=== PATIENT | female | born 2000 | race Caucasian/White ===

== ENCOUNTER 2021-04-26 14:47 | Outpatient (REF) | payer MEDICARE, MEDICAID, SELFPAY ==
--- NOTE | 2021-04-26 | PFT_ITS ---
FLOWS: FEV1 90% of predicted at 3.34 L. FVC 108% of predicted at 4.67 L. FEV1 to FVC ratio of 0.72. No bronchodilator response. LUNG VOLUMES: Total lung capacity 104% of predicted at 5.91 L. Residual volume 112% of predicted at 1.59 L. Slow vital capacity 102% of predicted at 4.32 L. Expiratory reserve volume 53% of predicted at 0.91 L. Diffusion capacity is normal. IMPRESSION: No obstructive or restrictive ventilatory defect. No bronchodilator response. Decreased expiratory reserve volume suggests extrathoracic restriction, likely secondary to abdominal obesity. Adam Purcell MD AP/MODL / [id number]
--- NOTE | ~2021-04-26 | XR_ITS ---
EXAMINATION: XR WRIST, RIGHT CLINICAL INFORMATION: Pain COMPARISON: None TECHNIQUE: PA, lateral, and oblique views of the right wrist. FINDINGS: The bones and soft tissues are normal. No fracture. Alignment is anatomic with normal joint spaces. No erosions or abnormal soft tissue calcifications. XR/XR wrist RT min 3V IMPRESSION: Normal right wrist.
--- NOTE | ~2021-04-26 | XR_ITS ---
EXAMINATION: BILATERAL KNEE X-RAY CLINICAL INFORMATION: Pain COMPARISON: None TECHNIQUE: 4 views of each knee FINDINGS: No fracture or dislocation is seen. There may be slight lateral tilt of the patella seen on the sunrise view bilaterally. Joint spaces are otherwise normal. There is no joint effusion. XR/XR knee LT 3V IMPRESSION: Question lateral tilt of the patella on the sunrise view bilaterally otherwise unremarkable exam.
--- NOTE | ~2021-04-26 | XR_ITS ---
EXAMINATION: BILATERAL KNEE X-RAY CLINICAL INFORMATION: Pain COMPARISON: None TECHNIQUE: 4 views of each knee FINDINGS: No fracture or dislocation is seen. There may be slight lateral tilt of the patella seen on the sunrise view bilaterally. Joint spaces are otherwise normal. There is no joint effusion. XR/XR knee RT 3V IMPRESSION: Question lateral tilt of the patella on the sunrise view bilaterally otherwise unremarkable exam.
== END 2021-04-26 14:48 | disposition home or self-care (01) ==
LOC: HO.RESP 14:47
PROVIDERS: PCP Family Medicine; Visit Provider Family Medicine
DX: M25.531 Pain in right wrist (principal); M25.561 Pain in right knee; M25.562 Pain in left knee
CPT/HCPCS: 73110; 73562; 94060; 94727; 94729

== ENCOUNTER 2021-07-29 13:29 | Outpatient (REF) | payer MEDICARE, MEDICAID, SELFPAY ==
--- NOTE | ~2021-07-29 | MR_ITS ---
EXAMINATION: MR BRAIN WITHOUT CONTRAST CLINICAL INFORMATION: Chronic tension headaches. COMPARISON: Head CT from 01/28/2018. TECHNIQUE: Multiplanar, multisequence imaging of the brain was performed without contrast. The patient reportedly refused to complete the examination. FINDINGS: No diffusion abnormalities are identified to suggest an acute infarct. The ventricles are normal in size. No mass effect or midline shift is seen. No brain parenchymal signal abnormality is noted. No extra-axial fluid collections are seen. The brainstem and cerebellum are normal. The gradient refocused acquisition demonstrates no pathologic magnetic susceptibility artifact to indicate underlying acute or chronic blood products. The craniovertebral junction, marrow signal, and midline structures are normal. The mastoid air cells and paranasal sinuses are well aerated. MR/MR head/brain wo con IMPRESSION: Normal incomplete MRI of the brain without contrast.
== END 2021-07-29 13:30 | disposition home or self-care (01) ==
LOC: HO.MRI 13:29
PROVIDERS: Visit Provider Family Medicine
DX: G43.909 Migraine, unspecified, not intractable, without status migrainosus (principal); G44.229 Chronic tension-type headache, not intractable
CPT/HCPCS: 70551

== ENCOUNTER 2023-01-01 13:18 | Outpatient (REF) | payer MEDICARE, MEDICAID, SELFPAY ==
[2023-01-01 16:44] LABS: HCG Quantitative < 2 mIU/mL
[2023-01-01 16:56] LABS: TSH reflex Free T4 2.39 uIU/mL (0.32-4.0)
[2023-01-02 18:50] LABS: Prolactin 7.5 ng/mL
[2023-01-04 23:53] LABS: C. trachomatis RNA TMA NOT DETECTED (NOT DETECTED); N. gonorrhoeae RNA TMA NOT DETECTED (NOT DETECTED); Trichomonas (NAAT) NOT DETECTED (NOT DETECTED)
== END 2023-01-01 13:19 | disposition home or self-care (01) ==
LOC: HO.HHCL 13:18
PROVIDERS: Visit Provider Advanced Practice Midwife
DX: Z12.4 Encounter for screening for malignant neoplasm of cervix (principal); Z20.2 Contact with and (suspected) exposure to infections with a predominantly sexual mode of transmission; N93.9 Abnormal uterine and vaginal bleeding, unspecified; N94.89 Other specified conditions associated with female genital organs and menstrual cycle
CPT/HCPCS: 36415; 84146; 84443; 84702; 87491; 87591; 87661; 88142

== ENCOUNTER 2024-05-07 11:24 | Outpatient (REF) | payer MEDICARE, MEDICAID, SELFPAY ==
[2024-05-07 13:34] LABS: Alanine Aminotransferase 32 U/L (0-31); Albumin Level 4.2 g/dL (3.5-5.0); Alkaline Phosphatase 129 U/L (39-117); Anion Gap 9 (12-20); Aspartate Amino Transferase 25 U/L (5-31); Bilirubin Total 0.2 mg/dL (0.0-1.0); Blood Urea Nitrogen 12 mg/dL (9-16); Calcium 9.4 mg/dL (8.4-10.2); Carbon Dioxide 20 mmol/L (22-29); Chloride 113 mmol/L (96-108); Estimated Glomerular Filt Rate > 60; Glucose Random 92 mg/dL (60-115); Iron 27 mcg/dL (30-160); Percent Iron Saturation 10 % (15-50); Potassium 3.6 mmol/L (3.3-5.1); Sodium 138 mmol/L (135-145); Total Iron Binding Capacity 275 mcg/dL (228-428); Total Protein 8.1 g/dL (6.5-8.0); Unsaturated Iron Binding 248 ug/dL
[2024-05-07 13:39] LABS: Estimated Average Glucose 126 mg/dL; Total Hemoglobin (HGBA1C) 3265.8667 umol/L
[2024-05-07 13:43] LABS: Cholesterol 135 mg/dL (<200); HDL Cholesterol 35 mg/dL (>40); LDL Cholesterol Calculated 80 mg/dL (<100); Triglycerides 102 mg/dL (<150)
--- OUTSIDE RECORDS SUMMARY | 2024-05-07 13:57 | XMS_ITS | Encounter Summary ---
Author Organization [employer] Address [address] [facility] [address] [place] [address] Care Team Providers Care Tax Compliance Officer Name Role Phone Sherley Ramirez MD Primary Care Provider [phone] Reason for Referral * Consultation (Routine) - Pending Review Specialty Diagnoses / Procedures Referred By Dianna torres Referred To Contact Neurology Diagnoses Altered mental status, unspecified altered mental status type Reina Miller MD [address] [place] [id number] Phone: tel: fax: Referral ID Status Reason Start Date Expiration Date Visits Requested Visits Authorized [id number] Pending Review Specialty Services Required 05/07/2024 05/07/2025 1 1 Reason for Visit * Reason Comments various neuro numbnes Encounter Details Date Type Department Care Team ([facility] st Contact Info) Description 05/07/2024 11:00 AM EDT Office Visit [facility] [address] [place] [address] [phone] Reina Miller MD [address] [place] [address] [phone] Altered mental status, unspecified altered mental status type (Primary Dx); Numbness; Routine screening for STI (sexually transmitted infection) Social History Tobacco Use Types Packs/Day Years Used Date Smoking Tobacco: Never Passive Smoke Exposure: Never Smokeless Tobacco: Never Alcohol Use Standard Drinks/Week Comments Never 0 (1 standard drink = 0.6 oz pur e alcohol) Depression Answer Date Recorded Patient Health Questionnaire-9 Score 6 03/25/2024 Patient Health Questionnaire-9 Score 6 03/25/2024 Last PHQ-9: Questionnaire Data Not on file 0 03/25/2024 Housing Stability Answer Date Recorded What is your housing situation today? I have rubens garcia 06/18/[address] you li ve. Do you have problems with any of the following? None of the above 06/18/2023 Food Insecurity Answer Date Recorded Within the past 12 months, y ou worried that your food would run out before you got money to buy more: Never True 06/18/2023 Within the past 12 months,th e food you bought just didn't last and you didn't have enough money to get more: Never True Transportation Answer Date Recorded In the past 12 months, has l ack of transportation kept you from medical appts, meetings, work or from getting things needed for daily living? No 06/18/2023 Utilities Answer Date Recorded In the past 12 months, has t he electric, gas, oil or water company threatened to shut off services in your home? No 06/18/2023 Depression Answer Date Recorded Patient Health Questionnaire-2 Score 1 03/25/2024 Comments No Sex and Gender Information Value Date Recorded Sex Assigned at Female 12/05/2021 10:16 AM EDT Legal Sex Female 10:16 AM EDT Gender Identity Female 12/05/2021 10:16 AM EDT Sexual Orientation Straight 12/05/2021 10 :16 AM EDT documented as of this encounter Last Filed Vital Signs Vital Sign Reading Time Taken Comments Blood Pressure 144/81 05/07/2024 10:57 AM EDT Pulse 95 05/07/2024 10:57 AM EDT Temperature 36.8 ??C (98.3 ??F) 05/07/2024 10:57 AM E DT Respiratory Rate 20 05/07/2024 10:57 AM EDT Oxygen Saturation 98% 05/07/2024 10:57 AM EDT Inhaled Oxygen Concentration - - Weight 142 kg (314 lb) 05/07/2024 10:57 AM EDT Height - - Body Mass Index 47.74 04/23/2024 10:43 AM EDT documented in this encounter Progress Notes * Reina Miller MD - 05/07/2024 11:00 AM EDT Subjective Patient ID: Alicia Hassan is a 23 y.o. female with past medical history of ADHD, learning disability, chronic headache, asthma, and obesity who presents to clinic for neruological concerns. PCP: Sherley Ramirez MD. Referred to neurology for migrainies. Mom called on 05/01/24 reporting that for last 3-4 months Pt has been having episodes of a sensationof numbness/weakness which starts in legs and radiates to arms/hands. Pt will experience a loss of hearing at the same time and will not have memory of what was going on after these sx go away. Pt isable to ambulate and use arms while this numbness is experienced. Pt reports becomes lightheaded and experiences a spacing out so to speak with this occurrence. Mother reports there is absolutely no drug use occurring. Pt reports these episodes come and go and after an episode Pt will experience abdominal pain/discomfort. Mother and Pt are encouraged to keep a diary of these episodes, time of day, what was going on before the episode and after etc. Pt reports three months of episodes of numbness with amnesia, loss of hearing, lightheadedness, lasting up to 30 min. Can be a few times a day. No loss of control of body or speech. Warning sign is legs get numb then travels to arms. She reports she had this several years ago. Feels very tired after with stomach ache and chest pain. Pt's sister has seizure disorder and paternal aunt with seizure disorder. Review of Systems Objective Visit Vitals BP (!) 144/81 (BP Location: Left arm, Patient Position: Sitting, BP Cuff Size: Adult) Pulse 95 Temp 98.3 ??F (36.8 ??C) (Temporal) Resp 20 Body mass index is 47.74 kg/m??. Physical Exam Problem List Items Addressed This Visit Altered mental status - Primary 23 year old woman with hx migraines, family history of seizures, psychiatric history with three months of episodes of numbness, lightheadedness with sensory changes and loss of memory. Differential includes atypical migraines, partial seizures, psychiatric episode vs other. -pt was contacted by neurology for referral placed 03/2023, encouraged to call for apt, will adjust referral to include episodes of altered mental status -check TSH, RPR, B12 -safety precautions, follow up prn Relevant Orders Referral to Neurology Vitamin B12/Folate, Serum Panel Basic Metabolic Panel TSH W/Reflex to FT4 Other Visit Diagnoses Numbness Routine screening for STI (sexually transmitted infection) Relevant Orders RPR (Monitor) with Reflex to Titer I, Gosia Hernandez, am serving as a scribe to document services personally performed by Dr. Hendricks, based on the patient's response to questions by provider and providers statements to me. documented in this encounter Miscellaneous Notes * Assessment & Plan Note - Reina Miller MD - 05/07/2024 1:08 PM EDT Associated Problem(s): Altered mental status 23 year old woman with hx migraines, family history of seizures, psychiatric history with three months of episodes of numbness, lightheadedness with sensory changes and loss of memory. Differential includes atypical migraines, partial seizures, psychiatric episode vs other. -pt was contacted by neurology for referral placed 03/2023, encouraged to call for apt, will adjust referral to include episodes of altered mental status -check TSH, RPR, B12 -safety precautions, follow up prn documented in this encounter Plan of Treatment Upcoming Encounters Date Type Department Care Team (Late st Contact Info) Description 06/03/2024 3:15 PM EDT Office Visit [facility] [address] [place] [address] Nisreen Adamson CNM [address] [place] [address] Scheduled Orders Name Type Priority Associated Diagnoses Orde r Schedule Vitamin B12/Folate, Serum Panel Lab Routine Altered mental status, unspecified altered mental status type Expected: 05/07/2024, Expires: 05/07/2025 Basic Metabolic Panel Lab Routine Altered mental status, unspecified altered mental status type Expected: 05/07/2024 (Approximate), Expires: 05/07/2025 RPR (Monitor) with Reflex to??Titer Lab Routine Routine screening for STI (sexually transmitted infection) Expected: 05/07/2024, Expires: 05/07/2025 Scheduled Referrals Name Type Priority Associated Diagnoses Orde r Schedule Referral to Neurology Outpatient Referral Routine Altered mental status, unspecified altered mental status type Expected: 05/07/2024 (Approximate), Expires: 05/07/2025 documented as of this encounter Procedures Procedure Name Priority Date/Time Associated Diagnosis Comments TSH W/REFLEX TO FT4 Routine 05/07/2024 1 1:28 AM EDT Altered mental status, unspecified altered mental status type documented in this encounter Results * TSH W/Reflex to FT4 (05/07/2024 11:28 AM EDT) TSH reflex Free T4 1.50 0.32 - 4.0 uIU/mL [facility] Blood Venous blood specimen / Unknown 05/07/2024 11:28 AM EDT 05/07/2024 1:05 PM EDT us Reina Miller MD LAB BLOOD ORDERABLES Final Result Performing Organization Address City/State/[facility] Co de Phone Number [facility] [address] [place] [phone] documented in this encounter Visit Diagnoses Diagnosis Altered mental status, unspecified altered mental status type- Primary Numbness Disturbance of skin sensation Routine screening for STI (sexually transmitted infection) Screening examination for venereal disease documented in this encounter Additional Health Concerns Assessment Noted Time PHQ-9 Depression Total Score: 6 03/25/19 25 11:05 AM EST documented as of this encounter Care Teams Tax Compliance Officer Relationship Specialty Start Date End Date Sherley Ramirez MD [address] [place] [phone] PCP - General Family Medicine 09/09/20 documented as of this encounter
--- OUTSIDE RECORDS SUMMARY | 2024-05-07 13:57 | XMS_ITS | Encounter Summary ---
Author Organization [employer] Address [address] [facility] [address] [place] [address] Care Team Providers Care Inspector Subassembly Name Role Phone Sherley Ramirez MD Primary Care Provider [phone] Encounter Details Date Type Department Care Team (Latest Contact Info) Description 05/07/2024 Travel Social History Tobacco Use Types Packs/Day Years [...] AM EDT documented as of this encounter Plan of Treatment Upcoming Encounters Date Type Department Care Team (Late st Contact Info) Description 06/03/2024 3:15 PM EDT Office Visit [facility] [address] [place] [address] Nisreen Adamson CNM [address] [place] [address] documented as of this encounter Visit Diagnoses Not on filedocumented in this encounter Additional Health Concerns Assessment Noted Time PHQ-9 Depression Total Score: 6 03/25/19 25 11:05 AM EST documented as of this encounter Care Teams Inspector Subassembly Relationship Specialty Start Date End Date Sherley Ramirez MD [address] [place] [address] PCP - General Family Medicine 09/09/20 documented as of this encounter
--- OUTSIDE RECORDS SUMMARY | 2024-05-07 13:57 | XMS_ITS | Clinical Summary ---
Author Organization [employer] Address [address] [facility] [address] [place] [address] Care Team Providers Care Paralegal Internship Name Role Phone Sherley Ramirez MD Primary Care Provider [phone] Allergies Active Allergy Reactions Criticality Noted Date Comments Trazodone Nausea Low 11/09/2023 Wound Dressing Adhesive 03/31/2024 Medications acyclovir (Zovirax) 5 % ointment APPLY TO THE AFFECTED AREA(S) EVERY THREE HOURS, SIX TIMES DAILY 022 Active cloNIDine (Catapres) 0.1 MG tablet Take 1 tablet by mouth 2 times daily. 023 Active OXcarbazepine (Trileptal) 300 MG tablet TAKE 1 TABLET BY MOUTH EVERY MORNING 023 Active albuterol 108 (90 Base) MCG/ACT inhalerIndicati ons:Mild intermittent asthma without complication INHALE 2 PUFFS BY MOUTH EVERY 4 TO 6 HOURS NEEDED FOR COUGH, WHEEZING, OR SHORTNESS OF BREATH 8.5 g 1 023 Active hydrocortisone 1 % creamIndication s:Dermatitis APPLY TOPICALLY TO THE AFFECTED AREA(S) EVERY DAY DIRECTED 28 g 1 023 Active cetirizine (ZyrTEC) 10 MG tabletIndicatio ns:Non-seasonal allergic rhinitis due to other allergic trigger TAKE 1 TABLET BY MOUTH EVERY DAY 90 tablet 3 024 Active Blood Pressure Monitor misc Check BP daily 1 each 024 Active amLODIPine (Norvasc) 2.5 MG tablet Take 1 tablet (2.5 mg) by mouth Once per day. 90 tablet 3 024 2024 Active omeprazole (PriLOSEC) [address] capsuleIndicati ons:Generalized abdominal pain TAKE 1 CAPSULE BY MOUTH TWICE DAILY 180 capsule 1 025 Active ibuprofen 800 MG tabletIndicatio ns:Pain TAKE 1 TABLET BY MOUTH EVERY 8 HOURS NEEDED FOR PAIN OR FEVER 30 tablet 1 025 Active magnesium oxide (Mag-Ox) 400 MG tablet Take 1 tablet (400 mg) by mouth Once per day. 90 tablet 3 025 Active riboflavin (vitamin B2) 100 mg tablet tabletIndicatio ns:Vitamin deficiency Take 2 tablets (200 mg) by mouth Once per day. 180 tablet 1 025 Active Vitamin D High Potency 25 MCG (1000 UT) capsule Take 1 capsule (25 mcg) by mouth Once per day. 90 capsule 3 025 Active Rimegepant Sulfate (Nurtec) 75 MG tablet dispersibleIndi cations:Prediab etes,Encounter for immunization,Mi graine without aura, not intractable, without status migrainosus,Vit herrera deficiency place 1 tablet by translingual route on top of tongue, allow to dissolve then swallow once as needed for migraine; max 1 dose/24 hrs 8 tablet 1 Active QUEtiapine (SEROquel) 25 MG tablet Take 25-50 mg by mouth at bedtime. Active sertraline (Zoloft) 100 MG tablet Take 1 tablet by mouth Once per day. Active acetaminophen (Liquid Pain Relief) 160 MG/5ML liquidIndicatio ns:Pain GIVE 20 ML BY MOUTH EVERY 8 HOURS NEEDED 300 mL 2 025 Active phentermine 15 MG capsule TAKE 1 CAPSULE BY MOUTH BEFORE BREAKFAST 30 capsule 025 Active docusate sodium (Colace) 100 MG capsuleIndicati ons:Constipatio n, unspecified constipation type TAKE 1 CAPSULE BY MOUTH TWICE DAILY IN THE MORNING AND AT BEDTIME NEEDED FOR CONSTIPATION 180 capsule 1 025 Active topiramate (Topamax) 100 MG tabletIndicatio ns:Migraine without aura, not intractable, without status migrainosus TAKE 1 TABLET BY MOUTH TWICE DAILY 60 tablet 2 025 Active norethindrone (Trina) 0.35 MG tablet Take 1 tablet (0.35 mg) by mouth Once per day. 84 tablet 1 024 2024 Discontinued(T herapy completed) docusate sodium (Colace) 100 MG capsuleIndicati ons:Constipatio n, unspecified constipation type Take 1 capsule (100 mg) by mouth if needed in the morning and at bedtime for constipation. 180 capsule 1 024 2024 Discontinued(R eorder (will not trigger notification to Pharmacy)) topiramate (Topamax) 100 MG tabletIndicatio ns:Migraine without aura, not intractable, without status migrainosus TAKE 1 TABLET BY MOUTH TWICE DAILY 60 tablet 025 2024 Discontinued(R eorder (will not trigger notification to Pharmacy)) phentermine 15 MG capsule Take 1 capsule (15 mg) by mouth before breakfast. 30 capsule 025 2024 Discontinued(R eorder (will not trigger notification to Pharmacy)) Hospital, Clinic, or Other Facility Administered Medication Ordered Dose Route Frequency Start Date End Date Status etonogestrel-eluting 68 mg contraceptive implant 1 eachIndications:Nexplanon insertion 1 each IL Once 04/23/2024 04/23/2024 Ended Active Problems Problem Noted Date Diagnosed Date Altered mental status 05/07/2024 Assessment & Plan (05/07/2024 1:08 PM EDT): 23 year old woman with hx migraines, [...] RPR, B12 -safety precautions, follow up prn Migraine without aura, not i ntractable, without status migrainosus 03/25/2024 Assessment & Plan (03/30/2024 12:48 PM EST): - MRI in July 2021 was normal - Continue Topirimate -Previously seen by Neurologist at [facility] -Continue Magnesium -Continue Riboflavin -Pt was prescribed Nurtec, but has not tried it yet from [facility], advised pt to picker operator from pharmacy - Prescribed topiramate (Topamax) 100 MG tablet 03/25/24 - Prescribed Rimegepant Sulfate (Nurtec) 75 MG tablet dispersible 03/25/24 - Prescribed magnesium oxide (Mag-Ox) 400 MG tablet 03/25/24 - Referred to Neurology 03/25/24 Vitamin deficiency 03/25/2024 Assessment & Plan (03/25/2024 3:10 PM EST): - Prescribed riboflavin (vitamin B2) 100 mg tablet tablet - Prescribed Rimegepant Sulfate (Nurtec) 75 MG tablet dispersible Prediabetes 11/09/2023 Assessment & Plan (03/25/2024 1:21 PM EST): - Last A1C 6.3% 03/25/24 - Emphasized the importance of lifestyle modifications. - start GLP1RA for weight loss - Prescribed Rimegepant Sulfate (Nurtec) 75 MG tablet dispersible 03/25/24 Assessment & Plan (11/09/2023 7:22 AM EDT): - last A1C 6.2% - Emphasized the importance of lifestyle modifications. - start GLP1RA for weight loss Sleep disturbance 11/09/2023 Assessment & Plan (03/30/2024 12:45 PM EST): - high risk for ALICIA - patient has been referred to sleep study, but patient has a difficulty keeping appointment - will refer to care management Assessment & Plan (11/09/2023 6:54 AM EDT): - high risk for ALICIA - evaluate with sleep study Hypertension 11/09/2023 Assessment & Plan (03/30/2024 12:51 PM EST): -Goal BP < 140/90 per JNC-8 and < 130/80 per ACC/AHA guideline (Treatment threshold >=140/90) -Continue working on lifestyle modifications -Recommended self-monitoring BP. -Continue amlodipine 2.5 mg daily Assessment & Plan (11/09/2023 7:19 AM EDT): -Goal BP < 140/90 per JNC-8 and < 130/80 per ACC/AHA guideline (Treatment threshold >=140/90) -Continue working on lifestyle modifications -Recommended self-monitoring BP. -Follow up for BP check in 2 weeks. If her home BP is persistently elevated and office BP is above goal, start nifedipine 30 mg daily as she is not adherent to her control. History of atrial septal defect 06/20/2022 Assessment & Plan (06/25/2022 6:27 AM EDT): -previously followed by pediatric radiologist, last seen in 2007 when she was 7 years old prior to starting stimulant -Echocardiogram in 2007 showed a very small ASD with non-significant [id number] shunt -Normal EKG in 2007 adn 08/02/21 -Pt was given reassurance that she does not need to have a cardiology follow-up -Advised to Psych contact us if Psych needs clearance from us to resume medication for ADHD. -No murmur today -Continue working on lifestyle modification to optimize cardiovascular health Tension headache 06/20/2022 Assessment & Plan (03/30/2024 12:44 PM EST): - multifactorial, tension and migraine - improve sleep and mental hygiene - improve medication adherence Assessment & Plan (11/09/2023 6:54 AM EDT): - multifactorial, tension and migraine - improve sleep and mental hygiene - take medications as prescribed Assessment & Plan (06/25/2022 6:20 AM EDT): - multifactorial, tension and migraine - improve sleep and mental hygiene - take medications as prescribed Migraine headache 06/20/2022 Assessment & Plan (03/30/2024 12:48 PM EST): - MRI in July 2021 was normal - Continue Topirimate -Previously seen by Neurologist at [facility] -Continue Magnesium -Continue Riboflavin -Pt was prescribed Nurtec, but has not tried it yet from [facility], advised pt to picker operator from pharmacy - Referred to Neurology 03/25/24 Assessment & Plan (06/25/2022 6:25 AM EDT): - MRI in July 2021 was normal - Continue Topirimate -Previously seen by Neurologist at [facility] -Continue Magnesium -Continue Riboflavin -Pt was prescribed Nurtec, but has not tried it yet from [facility], advised pt to picker operator from pharmacy Depression with anxiety 06/20/2022 Assessment & Plan (03/30/2024 12:52 PM EST): -followed by [facility] provider [facility] -Followed by Psychiatrist and therapist. -PHQ9 score 22 and GAD7 score 19 in Nov 2023 -? Bipolar - Current medications: clonidine; quetiapine; sertraline - Previously tried sertraline, bupropion, trazodone, prazosin; oxcarbazepine - We will need to confirm her diagnosis from psychiatrist - She was able to contract her safety today - advised to continue talking with her counselor and possibly adjusting her medications - recommended exercise as it has an antidepressant effect Assessment & Plan (11/09/2023 7:14 AM EDT): -followed by [facility] provider [facility] -Followed by Psychiatrist and therapist. -PHQ9 score 22 and GAD7 score 19. -? Bipolar - Current medications: clonidine; Oxcarbazepine - Previously tried sertraline, bupropion, trazodone, prazosin. - We will need to confirm her diagnosis from psychiatrist - She was able to contract her safety today - advised to continue talking with her counselor and possibly adjusting her medications - recommended exercise as it has an antidepressant effect Assessment & Plan (06/25/2022 6:31 AM EDT): -followed by [facility] provider [facility] -Followed by Psychiatrist. - Current medications: Bupropion; clonidine; Trileptal; sertraline; trazodone - there was a plan to restart stimulant for ADHD, but she is not taking it because she and her mother were concerned about Hx ASD. They were informed that Hx heart murmur (none currently) is not contraindicated with stimulant - She was able to contract her safety today - advised to discuss with her therapist and psychiatrist because she wants to pursue evaluation for autism spectrum disorder Elevated erythrocyte sedimentation rate 06/21/19 Assessment & Plan (06/25/2022 6:26 AM EDT): - seen by cuff turner machine operator because of family history of autoimmune disease (mother with psoriatic arthritis, grandfather with psoriatic arthritis, and grandmother with rheumatoid arthritis) - cuff turner machine operator's impression was it was likely due to her weight Asthma 06/20/2022 Assessment & Plan (03/30/2024 12:46 PM EST): - 04/06/21 PFT no obstructive airway disease, restrictive airway disease likely due to body habitus - pt still reports symptom relief with albuterol; continue judicious use of albuterol prnl Assessment & Plan (11/09/2023 6:54 AM EDT): - 04/06/21 PFT no obstructive airway disease, restrictive airway disease likely due to body habitus - pt still reports symptom relief with albuterol; continue judicious use of albuterol prnl Assessment & Plan (06/20/2022 5:23 AM EDT): - 04/06/21 PFT no obstructive airway disease, restrictive airway disease likely due to body habitus - pt still reports symptom relief with albuterol; continue judicious use of albuterol prnl Seasonal allergies 03/05/2022 Vitamin D deficiency 03/05/2022 Allergic rhinitis 01/01/2018 Assessment & Plan (06/25/2022 6:32 AM EDT): - continue Zyrtec and cetirizine Obesity 08/16/2016 Assessment & Plan (03/25/2024 1:19 PM EST): - she has prediabetes - likely PCOS, possibly ALICIA - work on lifestyle modifications - start GLP1RA - Pt was prescribed Zepbound but was not approved by insurance. Pt will try Phertamine. 03/25/24 - Pt will continue to work on lifestyle modifications Assessment & Plan (11/09/2023 7:23 AM EDT): - she has prediabetes - likely PCOS, possibly ALICIA - work on lifestyle modifications - start GLP1RA Assessment & Plan (04/18/2023 7:17 PM EDT): Encouraged increased activity and reviewed increasing healthy nutrition sources, Assessment & Plan (06/25/2022 6:21 AM EDT): - she has prediabetes - likely PCOS, possibly ALICIA - work on lifestyle modifications Attention deficit hyperactivity disorder 013 Assessment & Plan (03/30/2024 12:48 PM EST): -followed by [facility] provider [facility] -Followed by Psychiatrist. - Current medications: clonidine; She takes Oxcarbazepine for mood disorder. - there was a plan to restart stimulant for ADHD, but she is not taking it because she and her mother were concerned about Hx ASD. They were informed that Hx heart murmur (none currently) is not contraindicated with stimulant - She was able to contract her safety today Assessment & Plan (11/09/2023 7:13 AM EDT): -followed by [facility] provider [facility] -Followed by Psychiatrist. - Current medications: clonidine; She takes Oxcarbazepine for mood disorder. - there was a plan to restart stimulant for ADHD, but she is not taking it because she and her mother were concerned about Hx ASD. They were informed that Hx heart murmur (none currently) is not contraindicated with stimulant - She was able to contract her safety today Assessment & Plan (06/25/2022 6:31 AM EDT): -followed by [facility] provider [facility] -Followed by Psychiatrist. - Current medications: Bupropion; clonidine; Trileptal; sertraline; trazodone - there was a plan to restart stimulant for ADHD, but she is not taking it because she and her mother were concerned about Hx ASD. They were informed that Hx heart murmur (none currently) is not contraindicated with stimulant - She was able to contract her safety today - advised to discuss with her therapist and psychiatrist because she wants to pursue evaluation for autism spectrum disorder Learning difficulty 11/23/2011 Resolved Problems Problem Noted Date Diagnosed Date Resolved Date Gallbladder calculus with ac sebastian cholecystitis and no obstruction 03/05/2022 06/20/2022 Generalized abdominal pain 03/05/2022 0 06/20/2022 Hemoglobin low 03/05/2022 06/20/2022 Low hematocrit 03/05/2022 06/20/2022 Right upper quadrant pain 03/05/2022 Childhood emotional disorder 11/23/2011 06/20/2022 Encounters Date Type Department Care Team Description 05/07/2024 11:00 AM EDT Office Visit [address] [address] Reina Miller MD Altered mental status, unspecified altered mental status type (Primary Dx); Numbness; Routine screening for STI (sexually transmitted infection) 05/07/2024 Travel 05/06/2024 Refill [facility] [address] [place], [place] [phone] Sherley Ramirez MD Migraine without aura, not intractable, without status migrainosus 05/01/[address] [phone] Sherley Ramirez MD Nurse Triage 04/23/2024 11:00 AM EDT Procedure Visit [address] [address] Teetee Kramer CNM Nexplanon insertion (Primary Dx) 04/23/[address] [phone] Sherley Ramirez MD Prior Authorization (PA: Nurtec 75MG) 04/23/2024 Travel 04/21/2024 Refill [facility] [address] [place] [address] [phone] Sherley Ramirez MD Constipation, unspecified constipation type 04/21/[address] [phone] Sherley Ramirez MD Constipation, unspecified constipation type 04/03/2024 Patient Outreach [facility] [address] [place] [phone] Sherley Ramirez MD SDOH Concerns (C3CM/CHW SHARON Wadsworth PT1) 04/03/[address] [address] Sherley Ramirez MD PT-1 04/03/2024 Refill [facility] [address] [place], [place] [phone] Sherley Ramirez MD Pain 03/31/2024 2:00 PM EST Office Visit [facility] [address] [place] [address] Abelino, Kathleen, OD Myopia of both eyes (Primary Dx); Accommodative dysfunction 03/31/2024 Travel 03/28/2024 Refill [facility] [address] [place], [place] [phone] Sherley Ramirez MD Pain 03/25/2024 11:15 AM EST Office Visit [address] [address] Sherley Ramirez MD Migraine without aura and without status migrainosus, not intractable (Primary Dx); Prediabetes; Encounter for immunization; Migraine without aura, not intractable, without status migrainosus; Vitamin deficiency; Dietary counseling; Exercise counseling; Class 3 severe obesity due to excess calories with serious comorbidity and body mass index (BMI) of 40.0 to 44.9 in adult ([facility]); Tension headache; Sleep disturbance; Mild intermittent asthma without complication; Hypertension, unspecified type; Vitamin D deficiency; Attention deficit hyperactivity disorder (ADHD), unspecified ADHD type; Learning difficulty; Depression with anxiety 03/25/2024 Telephone [facility] [address] [place] [phone] Payton Rosario MA 03/25/2024 Travel 03/20/2024 Telephone [facility] [address] [place] [address] [phone] Judy Larkin MA chart prep 03/07/2024 Refill [facility] [address] [place], [place] [phone] Sherley Ramirez MD Pain 03/04/2024 Refill [facility] [address] [place] [address] Sherley Ramirez MD Migraine without aura, not intractable, without status migrainosus; Pain 02/18/2024 Telephone [facility] [address] [place] [address] Sherley Ramirez MD Appointment Request 02/18/2024 Refill [facility] [address] [place] [address] Sherley Ramirez MD Generalized abdominal pain 02/11/2024 Telephone [facility] [address] [place], [place] [phone] Sherley Ramirez MD Nurse Triage from Last 3 Months Immunizations Name Administration Dates Next Due DTaP 11/30/2003, 1,02/09/2000,11/02,1999 HPV 9-Valent 03/29/2015,11/10/2014,09/11/2014 Hep A, ped/adol, 2 dose 09/13/2015,09/11/2014 Hep B, Adolescent or Pediatric 02/23/2000,1999,1999 Hib (HbOC) 11/08/2000, 1,1999,08/31 IPV 11/30/2003, 1,1999,08/31 Influenza Injectable Quadriv alant Preservative Free IIV4 MDCK 11/02/2021,06/21/2021 Influenza injectable quadriv alent preservative free 11/11/2018,01/01/2018 Influenza, IIV3, injectable 01/13/2008,0 02/08/2006,11/10/2004,11/29,12/15/2002,11/10/2002 Influenza, Split (incl. eamon fied surface antigen) 01/06/2013,11/23/2011 Influenza, seasonal, injecta ble, preservative free 03/25/2024 MMR 11/30/2003,07/16/2000 Meningococcal MCV4P ACYW-135 10/15/2015,08/17/19 13 Pfizer Covid-19 Vaccine 12+ 04/18/2023 Pneumococcal Conjugate PCV 20 03/25/2024 Pneumococcal Conjugate PCV 7 11/08/2000, 02/14/2000,1999,08/31 Tdap 03/25/2024,08/16/2012 Varicella 08/16/2012,07/16/2000 Family History Medical History Relation Name Comments Obesity Mother psoriatic arthritis Mother Relation Name Status Comments Mother Alive Social History Tobacco Use Types Packs/Day Years [...] Orientation Straight 12/05/2021 10 :16 AM EDT Last Filed Vital Signs Vital Sign Reading Time Taken Comments Blood Pressure 144/81 05/07/2024 10:57 AM EDT Pulse 95 05/07/2024 10:57 AM EDT Temperature 36.8 ??C (98.3 ??F) 05/07/2024 10:57 AM E DT Respiratory Rate 20 05/07/2024 10:57 AM EDT Oxygen Saturation 98% 05/07/2024 10:57 AM EDT Inhaled Oxygen Concentration - - Weight 142 kg (314 lb) 05/07/2024 10:57 AM EDT Height 172.7 cm (5' 8 ) 04/23/2024 10:43 AM EDT Body Mass Index 47.74 04/23/2024 10:43 AM EDT Plan of Treatment Upcoming Encounters Date Type Department Care Team (Late st Contact Info) Description 06/03/2024 3:15 PM EDT Office Visit [facility] [address] [place], [place] [phone] Teetee Kramer, CN [address] [place], [place] [phone] Health Maintenance Due Date Last Done Comments Dental Oral Exam 07/23/2019 01/20/2019, , 08/29/2016, Additional history exists Dental Prophylaxis 07/23/2019 01/20/2019, 1 02/06/2017, 08/29/2016, Additional history exists Dental X-Ray: Bitewings 01/22/2020 01/21/20 19, 10/19/2017, 08/29/2016, Additional history exists Dental X-Ray: Full Mouth 10/20/2020 10/19/2017, 04/2013 COVID-19 Vaccine ( season) 2023 04/18/2023, 08/11/2020, 06/11/2020 SDOH Screening 06/17/2024 06/18/2023 Alcohol/Substance Use Screening 03/25/2025 03/25/2024 Depression Screening 03/25/2025 03/25/2024, 03/25/19 Diabetes: Hemoglobin A1C 03/25/2025 025, 03/25/2024, 07/24/2023, Additional history exists Family Planning (PISQ) 04/23/2025 04/23/2024 Tobacco Screening 05/07/2025 05/07/2024 Pap Smear 01/01/2026 01/01/2023, 01/01/2023 Lipid Panel 06/22/2027 05/07/2024, 06/05, 12/07/2020 DTaP/Tdap/Td Vaccines (8 - Td or Tdap) 03/25/2034 03/25/2024, 08/16/2012, 11/30/2003, Additional history exists Zoster Vaccines (1 of 2) 07/04/2049 RSV Patients and Patients Aged 60 years or older (1 - 1-dose 75+ series) 07/04/2074 Hepatitis B Vaccines Completed 02/23/2000, 1999, 1999 HIB Vaccines Completed 11/08/2000, 05/2000, 1999, Additional history exists IPV Vaccines Completed 11/30/2003, 07/06, 1999, Additional history exists HPV Vaccines Completed 03/29/2015, 07/2014, 09/11/2014 Hepatitis A Vaccines Completed 09/13/2015, 09/12/19 15 Meningococcal Vaccine Completed 10/15/2015, 013 HIV Screening Completed 12/27/2021, 10/2019, 07/10/2019 Hepatitis C Screening Completed 12/27/2021 , 08/14/2019, 07/10/2019 Influenza Vaccine Completed 03/25/2024, , 06/21/2021, Additional history exists Pneumococcal Vaccine: Pediatrics (0 to 5 Years) and At-Risk Patients (6 to 49) Years) Completed 03/25/2024, 11/08/2000, 02/14/2000, Additional history exists RSV under 20 months Aged Out No longe r eligible based on patient's age to complete this topic Rotavirus Vaccines Aged Out No longer eligible based on patient's age to complete this topic Procedures Procedure Name Priority Date/Time Associated Diagnosis Comments TSH W/REFLEX TO FT4 Routine 05/07/2024 1 1:28 AM EDT Altered mental status, unspecified altered mental status type IRON AND TOTAL IRON BINDING CAPACITY Routine 05/07/2024 11:28 AM EDT Microcytosis LIPID PANEL WITH REFLEX TO DIRECT LDL Routine 05/07/2024 11:28 AM EDT Elevated blood pressure reading in office without diagnosis of hypertension Prediabetes Class 3 severe obesity due to excess calories without serious comorbidity with body mass index (BMI) of 50.0 to 59.9 in adult ([facility]) COMPREHENSIVE METABOLIC PANEL Routine 05/07/2024 11:28 AM EDT Elevated blood pressure reading in office without diagnosis of hypertension HEMOGLOBIN A1C Routine 05/07/2024 11:28 AM EDT Prediabetes REUSE TECHNICIAN INSERTION/REMOVAL OF CONTRACEPTIVE CAPSULE Routine 04/23/2024 1:09 PM EDT Nexplanon insertion POCT , URINE Routine 04/23/2024 11:14 AM EDT Nexplanon insertion POCT GLYCOSYLATED HEMOGLOBIN (HGB A1C) Routine 03/25/2024 11:01 AM EST Prediabetes POCT GLUCOSE Routine 03/25/2024 11:01 AM EST Prediabetes PAP SMEAR Routine 01/01/2023 12:50 PM EST ZZZ HISTORICAL HEPATITIS C AB W/REFL TO HCV RNA, QN, PCR Routine 12/27/2021 12:49 PM EST HIV 1/2 ANTIGEN/ANTIBODY, FOURTH GENERATION W/RFL Routine 12/27/2021 12:49 PM EST PROPHYLAXIS - ADULT Routine 01/20/2019 1 2:00 AM EST BITEWINGS - 4 RADIOGRAPHIC IMAGES Routine 01/20/2019 12:00 AM EST PERIODIC ORAL EVALUATION - ESTABLISHED PATIENT Routine 01/20/2019 12:00 AM EST PANORAMIC RADIOGRAPHIC IMAGE Routine 10/19/2017 12:00 AM EDT from Last 3 Months or Most Recently Relevant to Health Maintenance Results * TSH W/Reflex to FT4 (05/07/2024 11:28 AM EDT) Pathologist [facility] TSH reflex Free T4 1.50 0.32 - 4.0 uIU/mL [facility] Blood Venous blood specimen / Unknown 05/07/2024 11:28 AM EDT 05/07/2024 1:05 PM EDT Reina Miller MD LAB BLOOD ORDERABLES Final Result Performing Organization Address [facility] Co de Phone Number [facility] [address] [place] [phone] * (ABNORMAL) Iron And Total Iron Binding Capacity (05/07/2024 11:28 AM EDT) Pathologist [facility] Iron 27(L) 30 - 160 mcg/dL [facility] Total Iron Binding Capacity 275 228 - 428 mcg/dL [facility] Percent Iron Saturation 10(L) 15 - 50 % [facility] Unsaturated Iron Binding 248 ug/dL [facility] Blood Venous blood specimen / Unknown 05/07/2024 11:28 AM EDT 05/07/2024 1:05 PM EDT Sherley Ramirez MD LAB BLOOD ORDERABLES Final Resul t Performing Organization Address [facility] de Phone Number [facility] [address] [place] [phone] * Hemoglobin A1c (05/07/2024 11:28 AM EDT) Hemoglobin A1c 6.0 <6.0 % [facility] Comment:Hemoglobin A1C Refer ence Range Adults: 4.8 - 6.0 % Non diabetic: < 6.0 % Goal: < 7.0 %Additional Action Suggested: > 8.0 %Note: Hemoglobin A1c results are invalid for patients with abnormal amounts of HbF. Blood transfusions may impact the HbA1c concentration in the patient sample. Estimated Average Glucose 126 mg/dL [facility] Comment:eAG = Estimated ave rage glucose which is %A1C expressed asaverage glucose, using the formula of the [id number]-[id number] Glucose study (ADAG), Diabetes Care, Vol.31,#8,2007 Blood Venous blood specimen / Unknown 05/07/2024 11:28 AM EDT 05/07/2024 1:05 PM EDT us Sherley Ramirez MD LAB BLOOD ORDERABLES Final Resul t [facility] [address] [place] [phone] * (ABNORMAL) Comprehensive Metabolic Panel (05/07/2024 11:28 AM EDT) Sodium 138 135 - 145 mmol/L [facility] Potassium 3.6 3.3 - 5.1 mmol/L [facility] Chloride 113(H) 96 - 108 mmol/L [facility] Carbon Dioxide 20(L) 22 - 29 mmol/L [facility] Anion Gap 9(L) 12 - 20 [facility] Urea Nitrogen (BUN) 12 9 - 16 mg/dL [facility] Creatinine, Serum 0.82 0.5 - 1.4 mg/dL [facility] Estimated Glomerular Filt Rate >60 [facility] Comment:Chronic Kidney Disea se: Estimated GFR < 60 mL/min/1.65z9Krngyu Kidney Disease: Estimated GFR < 15 mL/min/1.73m2 Glucose 92 60 - 115 mg/dL [facility] Calcium 9.4 8.4 - 10.2 mg/dL [facility] Bilirubin, Total 0.2 0.0 - 1.0 mg/dL [facility] Aspartate Amino Transferase 25 5 - 31 U/L [facility] Alanine Aminotransferase 32(H) 0 - 31 U/L [facility] Total Protein 8.1(H) 6.5 - 8.0 g/dL [facility] Albumin Level 4.2 3.5 - 5.0 g/dL [facility] Alkaline Phosphatase 129(H) 39 - 117 U/L [facility] Blood Venous blood specimen / Unknown 05/07/2024 11:28 AM EDT 05/07/2024 1:05 PM EDT us Sherley Ramirez MD LAB BLOOD ORDERABLES Final Resul t [facility] [address] [place] [phone] * Insertion/Removal of Contraceptive Capsule (04/23/2024 1:09 PM EDT) Narrative Teetee Kramer CNM - 04/23/2024 1:09 PM EDT Teetee Kramer CNM ? 04/23/2024 ??1:13 PM Insertion/Removal of Contraceptive Capsule Date/Time: 04/23/2024 1:09 PM Performed by: Teetee Kramer CNM Authorized by: Teetee Kramer CNM ?? Participating Staff: ??Teetee Kramer CNM Participating Staff: ??Yasmine Mayer RN [facility] student Consent: ??Consent obtained: ??Verbal and written ??Consent given by: ??Patient ??Procedural risks and benefits discussed: Yes ?Patient questions answered: yes ?Patient agrees, verbalizes understanding, and wants to proceed: yes ?Educational handouts given: yes ?Instructions and paperwork completed: yes ?? Indication: ??Indication: insertion of non-biodegradable drug delivery implant ?? Pre-procedure: ??Pre-procedure timeout performed: yes ?Prepped with: povidone-iodine ?Local anesthetic: 2ml 2% lidocaine. ??The site was cleaned and prepped in a sterile fashion: yes ?? Procedure: ??Procedure: ??Insertion ??Left/right: ??Left ??Preloaded contraceptive capsule trocar was placed subdermally: yes ?Visualization of implant was obtained: yes ?Contraceptive capsule was inserted and trocar removed: yes ?Visualization of notch in stylet and palpation of device: yes ?Palpation confirms placement by provider and patient: yes ?Site was closed with steri-strips and pressure bandage applied: yes ?? Teetee Kramer CNM IN CLINIC/BEDSIDE ORDERAB LES Final Result * POCT , urine manually resulted (04/23/2024 11:14 AM EDT) Preg Test, Ur Negative Negative, Indeterminate, None Detected, Invalid, Specimen unsatisfactory for evaluation, Weakly Positive QC Media Lot # [id number] Lot# Expiration Date [id number] Urine 04/23/2024 11:1 4 AM EDT Teetee Kramer CNM POINT OF CARE TEST ENTER/ EDIT ORDERABLES Final Result * (ABNORMAL) POCT glycosylated hemoglobin (Hgb A1c) (03/25/2024 11:01 AM EST) Pathologist [facility] Hemoglobin A1C 6.3(A) 4.0 - 6.0 % QC Media Lot # [id number] Lot# Expiration Date Blood Capillary blood specimen / Unknown 03/25/2024 11:01 AM EST Sherley Ramirez MD POINT OF CARE TEST ENTER/EDIT OR DERABLES Final Result * POCT glucose manually resulted (03/25/2024 11:01 AM EST) Pathologist [facility] Glucose Blood, POC 113 60 - 200 mg/dL QC Media Lot # [id number] Lot# Expiration Date Blood Capillary blood specimen / Unknown 03/25/2024 11:01 AM EST Sherley Ramirez MD POINT OF CARE TEST ENTER/EDIT OR DERABLES Final Result * Pap Smear (01/01/2023 12:50 PM EST) 01/01/2023 12:5 0 PM EST 01/02/2023 11:40 AM EST Narrative [facility] - 01/11/2023 4:11 PM EST ----- ------- Name: Alicia Hassan ? Age/Sex: 22/ ? : 2000 Unit#: [id number] ?? Attend Dr: TEETEE KRAMER CNM ?Re01/01/23 ?Status: DEP REF ? Location: [facility] ? Disch: ? ----- ------- SPEC : [id number] ?RECD: 01/02/23 ? STATUS: ??SOUT ? REQ NUM: [id number] ? VEE: 01/01/23-1250 ? SUBM DR: TEETEE KRAMER CNM ? ENTERED: ??01/02/23-2287 ?SP TYPE: Pap Smr ?OTHR : ? ORDERED: ??Pap Smear ? Interpretation ?? Satisfactory for evaluation. ?? Negative for intraepithelial lesion or malignancy. ?Clinical Information LMP: Unknown date Previous PAP test: Unknown date/findings ? Material Received ?? ThinPrep-Vaginal/Cervical ----- ------- Signed (signature on file) PORTIA Thompson (ASCP) 01/11/23 1611 ? ----- ------- ? END OF REPORT ? us Teetee BLANK LAB CYTOLOGY ORDERABLES F inal Result [facility] [address] [place] [phone] * HEPATITIS C AB W/REFL TO HCV RNA, QN, PCR (12/27/2021 12:49 PM EST) HEPATITIS C ANTIBODY NON-REACTI VE NON-REACT [place] [facility] INDEX 0.04 <1.00 [facility] Comment: ?? HCV antibody was non-reactive. There is no laboratory ?? evidence of HCV infection. ?? In most cases, no further action is required. However, if recent HCV exposure is suspected, a test for HCV RNA (test code 55661) is suggested. ?? For additional information please refer to http://[email or web address]/faq/SYU53x4 (This link is being provided for informational/ educational purposes only.) ?? 12/27/2021 12:4 9 PM EST Sherley Ramirez MD HISTORICAL/NON ORDERABLE LABS Fi nal Result [facility]GACY LABS * HIV 1/2 ANTIGEN/ANTIBODY,FOURTH GENERATION W/RFL (12/27/2021 12:49 PM EST) HIV-1/2 ANTIGEN AND ANTIBODIES, 4TH GENERATION W/ REFLEX NON-REACT [place] NON-REACT [facility] Comment: HIV-1 antigen and HIV-1/HIV-2 antibodies were not detected. There is no laboratory evidence of HIV infection. ?? PLEASE NOTE: This information has been disclosed to you from records whose confidentiality may be protected by state law. ??If your state requires such protection, then the state law prohibits you from making any further disclosure of the information without the specific written consent of the person to whom it pertains, or as otherwise permitted by law. A general authorization for the release of medical or other information is NOT sufficient for this purpose. ? For additional information please refer to http://[employer]/faq/VGA883 (This link is being provided for informational/ educational purposes only.) ? The performance of this assay has not been clinically validated in patients less than 2 years old. ?? 12/27/2021 12:4 9 PM EST us Sherley Ramirez MD LAB BLOOD ORDERABLES Final Resul t [facility] LAB[facility] from Last 3 Months or Most Recently Relevant to Health Maintenance [place] [address] [place] [address] [place] [phone] [employer] [employer] STAND ADULT Care Teams Paralegal Internship Relationship Specialty Start Date End Date Sherley Ramirez MD [address] [place] [phone] PCP - General Family Medicine 09/09/20
--- OUTSIDE RECORDS SUMMARY | 2024-05-07 13:58 | XMS_ITS | Encounter Summary ---
Author Organization [employer] Address [address] [facility] 7t [place] [address] Care Team Providers Care Wax Coating Machine Tender Name Role Phone Sherley Ramirez MD Primary Care Provider [phone] Reason for Visit * Reason Onset Date Comments PT-1 04/03/2024 Encounter Details Date Type Department Care Team ([facility] st Contact Info) Description 04/03/2024 Telephone [facility] [address] [place], [place] [phone] Sherley Ramirez MD [address] [place], [place] [phone] PT-1 Social History Tobacco Use Types Packs/Day Years [...] AM EDT documented as of this encounter Miscellaneous Notes * Telephone Encounter - Arian Haroldo - 04/03/2024 3:26 PM EST Patient calling requesting PT1 Home Address verified: Y/N: Yes Provider name or facility name: [facility], [address], [place] [address] Escort needed: Y/N: Yes Do you have a wheelchair: Y/N: No If yes- Manual or electric: N/A Visits: (amount of visits) ( x monthly, weekly, daily) 3 times a month documented in this encounter Plan of Treatment Upcoming Encounters Date Type Department Care Team (Late st Contact Info) Description 06/03/2024 3:15 PM EDT Office Visit [facility] [address] [place] [address] Nisreen Adamson CNM [address] [place] [address] documented as of this encounter Visit Diagnoses Not on filedocumented in this encounter Additional Health Concerns Assessment Noted Time PHQ-9 Depression Total Score: 6 03/25/19 25 11:05 AM EST documented as of this encounter Care Teams Wax Coating Machine Tender Relationship Specialty Start Date End Date Sherley Ramirez MD [address] [place] [address] PCP - General Family Medicine 09/09/20 documented as of this encounter
--- OUTSIDE RECORDS SUMMARY | 2024-05-07 13:58 | XMS_ITS | Encounter Summary ---
Author Organization [employer] Address [address] [facility] 7t [place] [address] Care Team Providers Care Lead Data Architect Name Role Phone Sherley Ramirez MD Primary Care Provider [phone] Reason for Visit * Reason Comments Med Refill Encounter Details Date Type Department Care Team (Late st Contact Info) Description 06/01/2022 Refill [facility] [address] [place], [place] [phone] Milagros Morris ANP [address] [place], [place] [phone] Pain Social History Tobacco Use Types Packs/Day Years Used Date Smoking Tobacco: Never Assessed Comments Unknown Sex and Gender Information Value Date Recorded Sex Assigned at Female 12/05/2021 10:16 AM EDT Legal Sex Female 10:16 AM EDT Gender Identity Female 12/05/2021 10:16 AM EDT Sexual Orientation Straight 12/05/2021 10 :16 AM EDT COVID-19 Exposure Response Date Recorded In the last 10 days, have yo u been in contact with someone who was confirmed or suspected to have Coronavirus/COVID-19? No / Unsure 05/25/2022 11:06 AM EDT documented as of this encounter Plan of Treatment Upcoming Encounters Date Type Department Care Team (Late Contact Info) Description 06/03/2024 3:15 PM EDT Office Visit [facility] [address] [place], [place] [phone] Nisreen Adamson CNM [address] [place], [place] [phone] documented as of this encounter Visit Diagnoses Diagnosis Pain Generalized pain documented in this encounter Care Teams Lead Data Architect Relationship Specialty Start Date End Date Sherley Ramirez MD [address] [place] [phone] PCP - General Family Medicine 09/09/20 documented as of this encounter
--- OUTSIDE RECORDS SUMMARY | 2024-05-07 13:58 | XMS_ITS | Encounter Summary ---
Author Organization [employer] Address [address] [facility] 7t [place] [address] Care Team Providers Care Banquet Lead Name Role Phone Sherley Ramirez MD Primary Care Provider [phone] Reason for Visit * Reason Onset Date Comments Nurse Triage 02/11/2024 Encounter Details Date Type Department Care Team ([facility] st Contact Info) Description 02/11/2024 Telephone [facility] [address] [place], [place] [phone] Sherley Ramirez MD [address] [place], [place] [phone] Nurse Triage Social History Tobacco Use Types Packs/Day Years Used Date Smoking Tobacco: Never Passive Smoke Exposure: Never Smokeless Tobacco: Never Alcohol Use Standard Drinks/Week Comments Never 0 (1 standard drink = 0.6 oz pur e alcohol) Depression Answer Date Recorded Patient Health Questionnaire-9 Score 22 11/09/2023 Patient Health Questionnaire-9 Score 22 11/09/2023 Last PHQ-9: Questionnaire Data Not on file 1 Housing Stability Answer Date Recorded What is [...] enough money to get more: Never True 05/ Transportation Answer Date Recorded In the past [...] Answer Date Recorded Patient Health Questionnaire-2 Score 6 11/09/2023 Comments No Sex and Gender Information Value Date Recorded Sex Assigned at Female 12/05/2021 10:16 AM EDT Legal Sex Female 10:16 AM EDT Gender Identity Female 12/05/2021 10:16 AM EDT Sexual Orientation Straight 12/05/2021 10 :16 AM EDT documented as of this encounter Miscellaneous Notes * Telephone Encounter - Estiven Abhijit - 02/11/2024 3:54 PM EST Symptom: Chest Pain - Adult Outcome: Talk to a nurse or provider within 15 minutes Reason: Started within the past 3 days The caller accepted this outcome. Contact pt at [phone] documented in this encounter Plan of Treatment Upcoming Encounters Date Type Department Care Team (Late st Contact Info) Description 06/03/2024 3:15 PM EDT Office Visit [facility] [address] [place] [address] Nisreen Adamson CNM [address] [place] [address] documented as of this encounter Visit Diagnoses Not on filedocumented in this encounter Additional Health Concerns Assessment Noted Time PHQ-9 Depression Total Score: 22 024 7:08 AM EDT documented as of this encounter Care Teams Banquet Lead Relationship Specialty Start Date End Date Sherley Ramirez MD [address] [place] [address] PCP - General Family Medicine 09/09/20 documented as of this encounter
--- OUTSIDE RECORDS SUMMARY | 2024-05-07 13:58 | XMS_ITS | Encounter Summary ---
Author Organization [employer] Address [address] [facility] [address]t [place] [address] Care Team Providers Care Brim Buster Name Role Phone Sherley Ramirez MD Primary Care Provider [phone] Reason for Visit * Reason Onset Date Comments Nurse Triage 01/14/2024 Encounter Details Date Type Department Care Team ([facility] st Contact Info) Description 01/14/2024 Telephone [facility] [address] [place], [place] [phone] Sherley Ramirez MD [address] [place], [place] [phone] Nurse Triage Social History Tobacco Use Types [...] encounter Miscellaneous Notes * Telephone Encounter - Grace Melgar RN - 01/14/2024 11:41 AM EST Triage call Pt reports dry cough for week now. Neg for nasal congestion/drainage, or pain with swallowing. Pt does report difficulty breathing at times with exertion, such as , ambulating. Tactile fever present. Neg for wheezing. Pt is advised to come to [facility] today but, reports can't come for 3 daysdue to transportation. Pt is advised to come to [facility] as soon as transportation is available and Pt agrees. Pt is given home care advice and encouraged to drink 6-8 glasses of liquid especially warm drinks like decaf tea. Honey 1-2 tsp , cough drops. tylenol/motrin for fever. Pt agrees with dispositio n and home care. Insurance is verified as active prior to booking. Protocol Used: Cough (Adult) Protocol-Based Disposition: See in Office or Video Visit Today or Tomorrow Override (Final) Disposition: See in Office or Video Visit within 3 Days Override Reason: Transportation not available Video visit not offered Positive Triage Questions: * Continuous (nonstop) coughing interferes with work or school and no improvement using cough treatment per Care Advice * Patient wants to be seen * All higher-acuity triage questions were negative Care Advice Discussed: * Reassurance and Education - Cough * Cough Medicines * Coughing Spells * Prevent Dehydration * Fever Medicines * Reasons To Call Back - Difficulty breathing - Cough lasts more than 3 weeks - Fever lasts more than 3 days - You become worse * Telephone Encounter - Noel Lenny - 01/14/2024 11:23 AM EST Symptoms: Chest Pain - Adult, Cough Outcome: Transfer to a nurse or provider NOW! Reason: Trouble breathing documented in this encounter Plan of Treatment Upcoming Encounters Date Type Department Care Team (Late st Contact Info) Description 06/03/2024 3:15 PM EDT Office Visit [facility] [address] [place] [address] Nisreen Adamson CNM [address] [place] [address] documented as of this encounter Visit Diagnoses Not on filedocumented in this encounter Additional Health Concerns Assessment Noted Time PHQ-9 Depression Total Score: 22 024 7:08 AM EDT documented as of this encounter Care Teams Brim Buster Relationship Specialty Start Date End Date Sherley Ramirez MD [address] [place] [address] PCP - General Family Medicine 09/09/20 documented as of this encounter
--- OUTSIDE RECORDS SUMMARY | 2024-05-07 13:58 | XMS_ITS | Encounter Summary ---
Author Organization [employer] Address [address] [facility] 7t [place] [address] Care Team Providers Care Box Toe Buffer Name Role Phone Sherley Ramirez MD Primary Care Provider [phone] Reason for Visit * Reason Onset Date Comments Nurse Triage 05/01/2024 Encounter Details Date Type Department Care Team ([facility] st Contact Info) Description 05/01/2024 Telephone [facility] [address] [place], [place] [phone] Sherley Ramirez MD [address] [place], [place] [phone] Nurse Triage Social History Tobacco Use Types [...] Telephone Encounter - Grace Melgar RN - 05/01/2024 12:12 PM EDT Triage call Pt mother is given permission to speak for Pt. Pt is nearby Mother at time of call. Mother reports that for last 3-4 months Pt has been having episodes of a sensation of numbness/weaknesswhich starts in legs and radiates to arms/hands. Pt will experience a loss of hearing at the same time and will not have memory of what was going on after these sx go away. Pt is able to ambulate anduse arms while this numbness is experienced. Pt reports becomes lightheaded and experiences a spacing out so to speak with this occurrence. Mother reports there is absolutely no drug use occurring.Pt reports these episodes come and go and after an episode Pt will experience abdominal pain/discomfort. Mother and Pt are encouraged to keep a diary of these episodes, time of day, what was going on before the episode and after etc. ASK apt with Dr. Miller 05/07/24 @ 1100am. Pt and mother agree with this disposition. Insurance is verified as active prior to booking. Protocol Used: Neurologic Deficit (Adult) Protocol-Based Disposition: See in Office or Video Visit within 3 Days Override (Final) Disposition: See in Office or Video Visit within 2 Weeks Override Reason: No appointments available Positive Triage Questions: * Weakness of arm or leg is a chronic symptom (recurrent or ongoing problem lasting > 4 weeks) * Numbness or tingling in one or both hands is a chronic symptom (recurrent or ongoing problem lasting > 4 weeks) * Numbness or tingling in one or both feet is a chronic symptom (recurrent or ongoing problem lasting > 4 weeks) * All higher-acuity triage questions were negative Care Advice Discussed: * Reasons To Call Back - Symptoms do not go away within 10 to 15 minutes - You become worse * Telephone Encounter - Jesse Guajardo - 05/01/2024 11:06 AM EDT Symptoms: Numbness, Hearing Loss Outcome: Schedule an urgent appointment (within 1 hour) or talk to a nurse or provider soon Reason: Started within the past 3 days The caller accepted this outcome. documented in this encounter Plan of Treatment Upcoming Encounters Date Type Department Care Team (Late st Contact Info) Description 06/03/2024 3:15 PM EDT Office Visit [facility] [address] [place] [address] Nisreen Adamson CNM [address] [place] [address] documented as of this encounter Visit Diagnoses Not on filedocumented in this encounter Additional Health Concerns Assessment Noted Time PHQ-9 Depression Total Score: 6 03/25/19 25 11:05 AM EST documented as of this encounter Care Teams Box Toe Buffer Relationship Specialty Start Date End Date Sherley Ramirez MD [address] [place] [address] PCP - General Family Medicine 09/09/20 documented as of this encounter
--- OUTSIDE RECORDS SUMMARY | 2024-05-07 13:58 | XMS_ITS | Encounter Summary ---
Author Organization [employer] Address [address] [place] [address] 7t [place] [address] Care Team Providers Care Dye Padder Operator Name Role Phone Sherley Ramirez MD Primary Care Provider [phone] Reason for Visit * Reason Comments Med Refill Encounter Details Date Type Department Care Team (Late Contact Info) Description 08/18/2022 Refill [facility] [address] [place], [place] [phone] Sherley Ramirez MD [address] [place], [place] [phone] Pain Social History Tobacco Use Types Packs/Day Years Used Date Smoking Tobacco: Never Passive Smoke Exposure: Never Smokeless Tobacco: Never Depression Answer Date Recorded Patient Health Questionnaire-9 Score 8 06/20/2022 Depression Answer Date Recorded Patient Health Questionnaire-2 Score 1 06/20/2022 Comments Unknown Sex and Gender Information Value Date Recorded Sex Assigned at Female 12/05/2021 10:16 AM EDT Legal Sex Female 10:16 AM EDT Gender Identity Female 12/05/2021 10:16 AM EDT Sexual Orientation Straight 12/05/2021 10 :16 AM EDT documented as of this encounter Plan of Treatment Upcoming Encounters Date Type Department Care Team (Late Contact Info) Description 06/03/2024 3:15 PM EDT Office Visit [facility] [address] [place], [place] [phone] Nisreen Adamson CNM [address] [place], [place] [phone] documented as of this encounter Visit Diagnoses Diagnosis Pain Generalized pain documented in this encounter Additional Health Concerns Assessment Noted Time PHQ-9 Depression Total Score: 8 06/21/19 23 2:04 PM EDT documented as of this encounter Care Teams Dye Padder Operator Relationship Specialty Start Date End Date Sherley Ramirez MD [address] [place] [address] PCP - General Family Medicine 09/09/20 documented as of this encounter
--- OUTSIDE RECORDS SUMMARY | 2024-05-07 13:58 | XMS_ITS | Encounter Summary ---
Author Organization [employer] Address 75 [facility] 7t [place] [address] Care Team Providers Care Rectification Printer Name Role Phone Sherley Ramirez MD Primary Care Provider [phone] Reason for Visit * Reason Onset Date Comments Med Refill 05/06/2024 Encounter Details Date Type Department Care Team (Late st Contact Info) Description 05/06/2024 Refill [facility] MED [facility] PEDS [address] [place], [place] [phone] Sherley Ramirez MD [address] [place], [place] [phone] Migraine without aura, not intractable, without status migrainosus Social History Tobacco Use Types Packs/Day Years [...] encounter Miscellaneous Notes * Telephone Encounter - Sarah Howard LPN - 05/06/2024 1:34 PM EDT Last seen 03/25/24. documented in this encounter Plan of Treatment Upcoming Encounters Date Type Department Care Team (Late st Contact Info) Description 06/03/2024 3:15 PM EDT Office Visit [facility] MEDICINE [address] [place] [address] Nisreen Adamson CNM [address] [place] [address] documented as of this encounter Visit Diagnoses Diagnosis Migraine without aura, not intractable, without status migrainosus documented in this encounter Additional Health Concerns Assessment Noted Time PHQ-9 Depression Total Score: 6 03/25/19 25 11:05 AM EST documented as of this encounter Care Teams Rectification Printer Relationship Specialty Start Date End Date Sherley Ramirez MD [address] [place] [address] PCP - General Family Medicine 09/09/20 documented as of this encounter
--- OUTSIDE RECORDS SUMMARY | 2024-05-07 13:58 | XMS_ITS | Encounter Summary ---
Author Organization [employer] Address 75 [facility] 7t [place] [address] Care Team Providers Care Work Distributor Name Role Phone Sherley Ramirez MD Primary Care Provider [phone] Encounter Details Date Type Department Care Team ([facility] st Contact Info) Description 11/20/2023 Orders Only [facility] MEDICINE [address] [place], [place] [phone] Sherley Ramirez MD [address] [place], [place] [phone] Social History Tobacco Use Types Packs/Day Years [...] Description 06/03/2024 3:15 PM EDT Office Visit [facility] MEDICINE [address] [place] [address] Nisreen Adamson CNM [address] [place] [address] documented as of this encounter Visit Diagnoses Not on filedocumented in this encounter Additional Health Concerns Assessment Noted Time PHQ-9 Depression Total Score: 22 024 7:08 AM EDT documented as of this encounter Care Teams Work Distributor Relationship Specialty Start Date End Date Sherley Ramirez MD [address] [place] [address] PCP - General Family Medicine 09/09/20 documented as of this encounter
--- OUTSIDE RECORDS SUMMARY | 2024-05-07 13:58 | XMS_ITS | Encounter Summary ---
Author Organization [employer] Address 75 [facility] 7t [place] [address] Care Team Providers Care Shoe Lacer Name Role Phone Sherley Ramirez MD Primary Care Provider [phone] Reason for Visit * Reason Onset Date Comments PT1 10/01/2023 Encounter Details Date Type Department Care Team ([facility] st Contact Info) Description 10/01/2023 Telephone [facility] MEDICINE [address] [place], [place] [phone] Sherley Ramirez MD [address] [place], [place] [phone] PT1 Social History Tobacco Use Types Packs/Day Years Used Date Smoking Tobacco: Never Passive Smoke Exposure: Never Smokeless Tobacco: Never Alcohol Use Standard Drinks/Week Comments Never 0 (1 standard drink = 0.6 oz pur e alcohol) Depression Answer Date Recorded Patient Health Questionnaire-9 Score 8 06/20/2022 Housing Stability Answer Date Recorded What is [...] Patient Health Questionnaire-2 Score 1 06/20/2022 Comments No Sex and Gender Information Value Date Recorded Sex Assigned at Female 12/05/2021 10:16 AM EDT Legal Sex Female 10:16 AM EDT Gender Identity Female 12/05/2021 10:16 AM EDT Sexual Orientation Straight 12/05/2021 10 :16 AM EDT documented as of this encounter Miscellaneous Notes * Telephone Encounter - Adrián Andrews - 10/01/2023 3:12 PM EDT Pt1 application submitted by chart writer to : [facility], [address] [facility] [id number], [place] [address] documented in this encounter Plan of Treatment Upcoming Encounters Date Type Department Care Team (Late st Contact Info) Description 06/03/2024 3:15 PM EDT Office Visit [facility] MEDICINE [address] [place] [address] Nisreen Adamson CNM [address] [place] [address] documented as of this encounter Visit Diagnoses Not on filedocumented in this encounter Additional Health Concerns Assessment Noted Time PHQ-9 Depression Total Score: 8 06/21/19 23 2:04 PM EDT documented as of this encounter Care Teams Shoe Lacer Relationship Specialty Start Date End Date Sherley Ramirez MD [address] [place] [address] PCP - General Family Medicine 09/09/20 documented as of this encounter
--- OUTSIDE RECORDS SUMMARY | 2024-05-07 13:58 | XMS_ITS | Encounter Summary ---
Author Organization [employer] Address 75 [facility] 7t [place] [address] Care Team Providers Care Family And Consumer Education Teacher Name Role Phone Sherley Ramirez MD Primary Care Provider [phone] Reason for Visit * Reason Onset Date Comments PT1 12/18/2023 Encounter Details Date Type Department Care Team ([facility] st Contact Info) Description 12/18/[address] [facility] MEDICINE [address] [place], [place] [phone] Sherley Ramirez MD [address] [place], [place] [phone] PT1 Social History Tobacco Use Types Packs/Day [...] encounter Miscellaneous Notes * Telephone Encounter - Magdalene Mendez - 12/18/2023 2:40 PM EST Patient calling requesting PT1 Home Address verified: Y/N: Yes Provider name or facility name: [facility] Facility Address: [address] [place] [address] Escort needed: Y/N: Yes Do you have a wheelchair: Y/N: No If yes- Manual or electric: n/a Visits: 1 x 3 months documented in this encounter Plan of Treatment Upcoming Encounters Date Type Department Care Team (Late st Contact Info) Description 06/03/2024 3:15 PM EDT Office Visit [facility] MEDICINE [address] [place] [address] Nisreen Adamson CNM [address] [place] [address] documented as of this encounter Visit Diagnoses Not on filedocumented in this encounter Additional Health Concerns Assessment Noted Time PHQ-9 Depression Total Score: 22 024 7:08 AM EDT documented as of this encounter Care Teams Family And Consumer Education Teacher Relationship Specialty Start Date End Date Sherley Ramirez MD [address] [place] [address] PCP - General Family Medicine 09/09/20 documented as of this encounter
--- OUTSIDE RECORDS SUMMARY | 2024-05-07 13:58 | XMS_ITS | Encounter Summary ---
Author Organization [employer] Address [address] [place] [address] 7t [place] [address] Care Team Providers Care Software Configuration Engineer Name Role Phone Sherley Ramirez MD Primary Care Provider [phone] Reason for Visit * Reason Comments Med Refill Encounter Details Date Type Department Care Team (Late st Contact Info) Description 08/22/2022 Refill [facility] MEDICINE [address] [place], [place] [phone] Sherley Ramirez MD [address] [place], [place] [phone] Dermatitis; Pain Social History Tobacco Use Types Packs/Day [...] Description 06/03/2024 3:15 PM EDT Office Visit [facility] MEDICINE [address] [place], [place] [phone] Nisreen Adamson CNM [address] [place], [place] [phone] documented as of this encounter Visit Diagnoses Diagnosis Dermatitis Contact dermatitis and other eczema, due to unspecified cause Pain Generalized pain documented in this encounter Additional Health Concerns Assessment Noted Time PHQ-9 Depression Total Score: 8 06/21/19 23 2:04 PM EDT documented as of this encounter Care Teams Software Configuration Engineer Relationship Specialty Start Date End Date Sherley Ramirez MD [address] [place] [address] PCP - General Family Medicine 09/09/20 documented as of this encounter
--- OUTSIDE RECORDS SUMMARY | 2024-05-07 13:58 | XMS_ITS | Encounter Summary ---
Author Organization [employer] Address 75 [facility] 7t [place] [address] Care Team Providers Care Passenger Tire Builder Name Role Phone Sherley Ramirez MD Primary Care Provider [phone] Encounter Details Date Type Department Care Team ([facility] st Contact Info) Description 12/18/[address] [facility] MEDICINE [address] [place], [place] [phone] Sherley Ramirez MD [address] [place], [place] [phone] Social History Tobacco Use Types Packs/Day Years [...] Description 06/03/2024 3:15 PM EDT Office Visit [facility] MEDICINE [address] [place] [address] Nisreen Adamson CNM [address] [place] [address] documented as of this encounter Visit Diagnoses Not on filedocumented in this encounter Additional Health Concerns Assessment Noted Time PHQ-9 Depression Total Score: 22 024 7:08 AM EDT documented as of this encounter Care Teams Passenger Tire Builder Relationship Specialty Start Date End Date Sherley Ramirez MD [address] [place] [address] PCP - General Family Medicine 09/09/20 documented as of this encounter
--- OUTSIDE RECORDS SUMMARY | 2024-05-07 13:58 | XMS_ITS | Encounter Summary ---
Author Organization [employer] Address 75 [facility] 7t [place] [address] Care Team Providers Care Nursery Laborer Name Role Phone Sherley Ramirez MD Primary Care Provider [phone] Reason for Visit * Reason Comments Med Refill Encounter Details Date Type Department Care Team (Late Contact Info) Description 04/11/2022 Refill [facility] MEDICINE [address] [place], [place] [phone] Sherley Ramirez MD [address] [place], [place] [phone] Pain Social History Tobacco Use Types Packs/Day [...] Description 06/03/2024 3:15 PM EDT Office Visit [facility] MEDICINE [address] [place], [place] [phone] Nisreen Adamson CNM [address] [place] [address] documented as of this encounter Visit Diagnoses Diagnosis Pain Generalized pain documented in this encounter Care Teams Nursery Laborer Relationship Specialty Start Date End Date Sherley Ramirez MD [address] [place] [address] PCP - General Family Medicine 09/09/20 documented as of this encounter
--- OUTSIDE RECORDS SUMMARY | 2024-05-07 13:58 | XMS_ITS | Encounter Summary ---
Author Organization [employer] Address 75 [facility] 7t [place] [address] Care Team Providers Care Fireboat Operator Name Role Phone Sherley Ramirez MD Primary Care Provider [phone] Reason for Visit * Reason Onset Date Comments Medication Question 11/30/2023 Encounter Details Date Type Department Care Team ([facility] Contact Info) Description 11/30/[address] [facility] MEDICINE [address] [place], [place] [phone] Sherley Ramirez MD [address] [place], [place] [phone] Medication Question Social History Tobacco Use Types Packs/Day Years [...] encounter Miscellaneous Notes * Telephone Encounter - Maria Ines Toussaint RN - 12/05/2023 9:36 AM EDT TC placed to pt mother Nikkie in regards to question about secondary effects that pt current blood pressure medication might have due to pt current heart murmur. Per PCP Dr. Ramirez, Nikkie was informed that the most common side effect of the medication is leg swelling and is dose dependent. Pt dose islow so this should not pose a significant problem. Nikkie stated understanding but wants PCP to known that the pt has not been taking the prescribed Amlodipine 2.5 mg due to fear of side effects. The pt does have a BP check [place] tomorrow 12/05 and this will be discussed further to see if an alternativemedication can be given. PCP will be sent this message as an FYI * Telephone Encounter - Jesse Guajardo - 11/30/2023 3:54 PM EDT Tc from Nikkie (mother) , she will like pcp to contact pt to inform her what are the secondary effects to high blood pressure med due to pt having a heart murmur. documented in this encounter Plan of Treatment Upcoming Encounters Date Type Department Care Team (Late st Contact Info) Description 06/03/2024 3:15 PM EDT Office Visit [facility] MEDICINE [address] [place] [address] Nisreen Adamson CNM [address] [place] [address] documented as of this encounter Visit Diagnoses Not on filedocumented in this encounter Additional Health Concerns Assessment Noted Time PHQ-9 Depression Total Score: 22 024 7:08 AM EDT documented as of this encounter Care Teams Fireboat Operator Relationship Specialty Start Date End Date Sherley Ramirez MD [address] [place] [address] PCP - General Family Medicine 09/09/20 documented as of this encounter
--- OUTSIDE RECORDS SUMMARY | 2024-05-07 13:58 | XMS_ITS | Encounter Summary ---
Author Organization [employer] Address 75 [facility] 7t [place] [address] Care Team Providers Care Freight Engineer Name Role Phone Sherley Ramirez MD Primary Care Provider [phone] Reason for Visit * Reason Onset Date Comments Appointment Request 02/18/2024 Encounter Details Date Type Department Care Team ([facility] st Contact Info) Description 02/18/2024 Telephone [facility] MEDICINE [address] [place], [place] [phone] Sherley Ramirez MD [address] [place], [place] [phone] Appointment Request Social History Tobacco Use Types Packs/Day Years [...] encounter Miscellaneous Notes * Telephone Encounter - Noel Lenny - 02/18/2024 4:28 PM EST Tc from mom requesting to schedule physical with pcp. Please contact mom at [phone]. Pt 2/2 documented in this encounter Plan of Treatment Upcoming Encounters Date Type Department Care Team (Late st Contact Info) Description 06/03/2024 3:15 PM EDT Office Visit [facility] MEDICINE [address] [place] [address] Nisreen Adamson CNM [address] [place] [address] documented as of this encounter Visit Diagnoses Not on filedocumented in this encounter Additional Health Concerns Assessment Noted Time PHQ-9 Depression Total Score: 22 024 7:08 AM EDT documented as of this encounter Care Teams Freight Engineer Relationship Specialty Start Date End Date Sherley Ramirez MD [address] [place] [address] PCP - General Family Medicine 09/09/20 documented as of this encounter
--- OUTSIDE RECORDS SUMMARY | 2024-05-07 13:58 | XMS_ITS | Encounter Summary ---
Author Organization [employer] Address 75 [facility] 7t [place] [address] Care Team Providers Care Synthetic Filament Extruder Name Role Phone Sherley Ramirez MD Primary Care Provider [phone] Encounter Details Date Type Department Care Team (Latest Contact Info) Description 01/20/2019 Abstract [facility] CONVERSIONS Dental, Provider, DDS Social History Tobacco Use Types Packs/Day Years [...] Upcoming Encounters Date Type Department Care Team ( st Contact Info) Description 06/03/2024 3:15 PM EDT Office Visit [facility] MEDICINE [address] [place] [address] Nisreen Adamson CNM [address] [place] [address] documented as of this encounter Visit Diagnoses Not on filedocumented in this encounter Care Teams Synthetic Filament Extruder Relationship Specialty Start Date End Date Sherley Ramirez MD [address] [place] [address] PCP - General Family Medicine 09/09/20 documented as of this encounter
--- OUTSIDE RECORDS SUMMARY | 2024-05-07 13:58 | XMS_ITS | Encounter Summary ---
Author Organization [employer] Address 75 [facility] 7t [place] [address] Care Team Providers Care Strategic Analyst Name Role Phone Sherley Ramirez MD Primary Care Provider [phone] Encounter Details Date Type Department Care Team (Late Contact Info) Description 03/01/2022 Orders Only [facility] CH[facility] MED & PEDS [address] [place], [place] [phone] Sarah Howard LPN Social History Tobacco Use Types Packs/Day Years Used Date Smoking Tobacco: Never Assessed Comments Unknown Sex and Gender Information Value Date Recorded Sex Assigned at Female 12/05/2021 10:16 AM EDT Legal Sex Female 10:16 AM EDT Gender Identity Female 12/05/2021 10:16 AM EDT Sexual Orientation Straight 12/05/2021 10 :16 AM EDT documented as of this encounter Miscellaneous Notes * Result Encounter Note - Nisreen Kramer CNM - 03/01/2022 8:40 AM EST Please let Alicia know her pap was normal, gonorrhea/chlamydia/trichomonas negative. Thanks! documented in this encounter Plan of Treatment Upcoming Encounters Date Type Department Care Team (Late Contact Info) Description 06/03/2024 3:15 PM EDT Office Visit [facility] MEDICINE [address] [place], [place] [phone] Nisreen Kramer CNM [address] [place], [place] [phone] documented as of this encounter Procedures Procedure Name Priority Date/Time Associated Diagnosis Comments BETA-HCG, QUANTITATIVE (TUMOR MARKER) Routine 01/01/2023 1:24 PM EST PAP SMEAR Routine 01/01/2023 12:50 PM EST documented in this encounter Results * hCG, Total, Quantitative (01/01/2023 1:24 PM EST) HCG Quantitative <2 mIU/mL [facility] Comment:Weeks post LMP Appro ximate hCG(Last Menstrual Period) Range (mIU/ml)3 - 4 weeks 9 - 1304 - 5 weeks 75 - 2,6005 - 6 weeks 850 - 20,8006 - 7 weeks 4000 - 100,2007 - 12 weeks 11,500 - 289,15189 - 16 weeks 18,300 - 137,36917 - 29 weeks (2nd trimester) 1,400 - 53,57947 - 41 weeks (3rd trimester) 940 - 60,000The Kim B- hCG assay is used for the early detection ofpregnancy; it cannot be used to diagnose any conditionunrelated to . If a B-hCG level is not supportedby the clinical evidence, results should be confirmed by analternative method (qualitative urine hCG, for example). 01/01/2023 1:24 PM EST 01/01/2023 4:15 PM EST us Nisreen Kramer [facility] BLOOD ORDERABLES Henrietta l Result [facility] [address] [place] [phone] * Pap Smear (01/01/2023 12:50 PM EST) 01/01/2023 12:5 0 PM EST 01/02/2023 11:40 AM EST Narrative [facility] - 01/11/2023 4:11 PM EST ----- ------- Name: Alicia Hassan ? Age/Sex: 22/ ? : 2000 Unit#: [id number] ?? Attend Dr: NISREEN KRAMER CNM ?Re01/01/23 ?Status: DEP REF ? Location: [facility] ? Disch: ? ----- ------- SPEC : [id number] ?RECD: 01/02/23 ? STATUS: ??SOUT ? REQ NUM: [id number] ? VEE: 01/01/231253 ? SUBM DR: NISREEN KRAMER CNM ? ENTERED: ??01/02/23-1007 ?SP TYPE: Pap Smr ?OTHR : ? ORDERED: ??Pap Smear ? Interpretation ?? Satisfactory for evaluation. ?? Negative for intraepithelial lesion or malignancy. ?Clinical Information LMP: Unknown date Previous PAP test: Unknown date/findings ? Material Received ?? ThinPrep-Vaginal/Cervical ----- ------- Signed (signature on file) PORTIA Thompson (ASCP) 01/11/23 1611 ? ----- ------- ? END OF REPORT ? us Nisreen BLANK LAB CYTOLOGY ORDERABLES F inal Result [facility] [address] [place] [address] [phone] documented in this encounter Visit Diagnoses Not on filedocumented in this encounter Care Teams Strategic Analyst Relationship Specialty Start Date End Date Sherley Ramirez MD [address] [place] [phone] PCP - General Family Medicine 09/09/20 documented as of this encounter
--- OUTSIDE RECORDS SUMMARY | 2024-05-07 13:58 | XMS_ITS | Encounter Summary ---
Author Organization [employer] Address 75 [facility] 7t [place] [address] Care Team Providers Care Mainframe Systems Administrator Name Role Phone Sherley Ramirez MD Primary Care Provider [phone] Reason for Visit * Reason Comments Med Refill Encounter Details Date Type Department Care Team ([facility] st Contact Info) Description 08/07/2023 Refill [facility] CH[facility] MED & PEDS [address] [place], [place] [phone] Sherley Ramirez MD [address] [place] [address] Pain Social History Tobacco Use Types Packs/Day [...] 3:15 PM EDT Office Visit [facility] MEDICINE [address] [place] [address] Nisreen Adamson CNM [address] [place] [address] documented as of this encounter Visit Diagnoses Diagnosis Pain Generalized pain documented in this encounter Additional Health Concerns Assessment Noted Time PHQ-9 Depression Total Score: 8 06/21/19 23 2:04 PM EDT documented as of this encounter Care Teams Mainframe Systems Administrator Relationship Specialty Start Date End Date Sherley Ramirez MD [address] [place] [address] PCP - General Family Medicine 09/09/20 documented as of this encounter
--- OUTSIDE RECORDS SUMMARY | 2024-05-07 13:58 | XMS_ITS | Encounter Summary ---
Author Organization [employer] Address 75 [facility] 7t [place] [address] Care Team Providers Care Incident Coordinator Name Role Phone Sherley Ramirez MD Primary Care Provider [phone] Reason for Visit * Reason Comments Med Refill Encounter Details Date Type Department Care Team ([facility] st Contact Info) Description 03/28/2024 Refill [facility] CH[facility] MED & PEDS [address] [place], [place] [phone] Sherley Ramirez MD [address] [place] [address] Pain Social History Tobacco Use Types Packs/Day [...] Description 06/03/2024 3:15 PM EDT Office Visit [facility] MEDICINE [address] [place] [address] Nisreen Adamson CNM [address] [place] [address] documented as of this encounter Visit Diagnoses Diagnosis Pain Generalized pain documented in this encounter Additional Health Concerns Assessment Noted Time PHQ-9 Depression Total Score: 6 03/25/19 25 11:05 AM EST documented as of this encounter Care Teams Incident Coordinator Relationship Specialty Start Date End Date Sherley Ramirez MD [address] [place] [address] PCP - General Family Medicine 09/09/20 documented as of this encounter
--- OUTSIDE RECORDS SUMMARY | 2024-05-07 13:58 | XMS_ITS | Encounter Summary ---
Author Organization [employer] Address [address] [facility] [address] [place] [address] Care Team Providers Care Cardiology Nurse Practitioner Name Role Phone Sherley Ramirez MD Primary Care Provider [phone] Reason for Visit * Reason Onset Date Comments Nurse Triage 11/03/2022 Encounter Details Date Type Department Care Team ([facility] st Contact Info) Description 11/03/2022 Telephone [facility] [address] [place], [place] [phone] Sherley Ramirez MD [address] [place], [place] [phone] Nurse Triage Social History Tobacco Use Types [...] Telephone Encounter - Grace Melgar RN - 11/03/2022 12:57 PM EDT Triage call Pt reports urinary frequency since yesterday with some burning sensation at times. Neg for odor in urine, flank/low back pain , fever. Pt is drinking adequate liquids. Pt also hasn't had period this month. Pt has taken a couple of tests which have been neg. Pt is sexually active and not using control. Pt is advised to come to [facility] to be seen for urinary symptoms and another test . Pt agrees and is not sure if able to come today or Sunday. Hours open given, open till 400pm today and sunday 830am till 800pm. Protocol Used: Urinary Symptoms (Adult) Protocol-Based Disposition: See in Office or Video Visit Today Video visit not offered Positive Triage Question: * Urinating more frequently than usual (i.e., frequency) * All higher-acuity triage questions were negative Care Advice Discussed: * Reasons To Call Back - Fever occurs - Pain or burning with urination - Unable to urinate and bladder feels full - You become worse * Telephone Encounter - Kaitlyn Hollins - 11/03/2022 12:43 PM EDT Symptoms: Urine Symptoms, Vaginal Symptoms - Not Bleeding, Menstrual Periods Absent or Missed Outcome: Schedule a same-day appointment or talk to a nurse or provider today Reason: burning when urinating The caller accepted this outcome documented in this encounter Plan of Treatment Upcoming Encounters Date Type Department Care Team (Late st Contact Info) Description 06/03/2024 3:15 PM EDT Office Visit [facility] [address] [place] [address] Nisreen Adamson CNM [address] [place] [address] documented as of this encounter Visit Diagnoses Not on filedocumented in this encounter Additional Health Concerns Assessment Noted Time PHQ-9 Depression Total Score: 8 06/21/19 23 2:04 PM EDT documented as of this encounter Care Teams Cardiology Nurse Practitioner Relationship Specialty Start Date End Date Sherley Ramirez MD [address] [place] [address] PCP - General Family Medicine 09/09/20 documented as of this encounter
--- OUTSIDE RECORDS SUMMARY | 2024-05-07 13:58 | XMS_ITS | Encounter Summary ---
Author Organization [employer] Address [address] [facility] [address] [place] [address] Care Team Providers Care Health Communications Specialist Name Role Phone Sherley Ramirez MD Primary Care Provider [phone] Reason for Visit * Reason Onset Date Comments PT-1 07/19/2023 Encounter Details Date Type Department Care Team ([facility] st Contact Info) Description 07/19/2023 Telephone [facility] [address] [place], [place] [phone] Sherley Ramirez MD [address] [place], [place] [phone] PT-1 Social History Tobacco Use Types Packs/Day [...] encounter Miscellaneous Notes * Telephone Encounter - Tyra Giang - 08/07/2023 2:24 PM EDT Tc from mom calling stating receive a approval letter for PT1 however in escort needed section the answer in NO, mom stated pt will not go anywhere without escort. Mom is requesting correction. * Telephone Encounter - Ibrahima Rodriguez - 07/19/2023 2:15 PM EDT Patient calling requesting PT1 Home Address verified: Y/N: Yes Provider name or facility name: [facility] Facility Address: [address] [place] [address] Escort needed: Y/N: Yes Do you have a wheelchair: Y/N: No If yes- Manual or electric: no Visits: 3 documented in this encounter Plan of Treatment Upcoming Encounters Date Type Department Care Team (Late st Contact Info) Description 06/03/2024 3:15 PM EDT Office Visit [facility] [address] [place], [place] [phone] Nisreen Adamson CNM [address] [place] [address] documented as of this encounter Visit Diagnoses Not on filedocumented in this encounter Additional Health Concerns Assessment Noted Time PHQ-9 Depression Total Score: 8 06/21/19 23 2:04 PM EDT documented as of this encounter Care Teams Health Communications Specialist Relationship Specialty Start Date End Date Sherley Ramirez MD [address] [place] [address] PCP - General Family Medicine 09/09/20 documented as of this encounter
[2024-05-07 13:59] LABS: Ferritin 19 ng/mL (10-122); Vitamin D 25-OH Total 23.2 ng/mL (>30)
[2024-05-07 14:19] LABS: Folate 3.5 ng/mL (> or = 4.0); Vitamin B12 649 pg/mL (200-900)
[2024-05-07 14:50] LABS: Reflex LDLD? No
[2024-05-08 12:44] LABS: RPR Rapid Plasma Reagin NON-REACTIVE (NON-REACTIVE)
== END 2024-05-07 11:25 | disposition home or self-care (01) ==
LOC: HO.HHCL 11:24
PROVIDERS: Family Medicine; Visit Provider Family Medicine
DX: E55.9 Vitamin D deficiency, unspecified (principal)
CPT/HCPCS: 36415; 80053; 80061; 82306; 82607; 82728; 82746; 83036; 83540; 84443; 86592

== ENCOUNTER 2024-11-18 20:23 | Emergency (ER) | payer MEDICARE, MEDICAID, SELFPAY ==
--- NOTE | ~2024-11-18 | CT_ITS ---
CLINICAL HISTORY: ams CT head without contrast Comparison: None provided. Findings: No intracranial mass, midline shift, hydrocephalus, or acute hemorrhage. Visualized paranasal sinuses and mastoid air cells appear clear. No acute skull fracture. Impression: 1. No acute intracranial abnormality. No acute intracranial hemorrhage. This document has been electronically signed by: Migel Ibrahim MD on 11/19/2024 00:12:25
[2024-11-18 20:26] VITALS: BP 124/78; PULSE 120; O2SAT 96
[2024-11-18 20:47] VITALS: BMI 53.5
[2024-11-18 20:51] VITALS: BP 131/67; PULSE 117; RESP 20; TEMP 36.9; O2SAT 98
--- OUTSIDE RECORDS SUMMARY | 2024-11-18 21:54 | XMS_ITS | Encounter Summary ---
Author Organization [employer] Address [address] [facility] [address] [place] [address] Care Team Providers Care Condominium Property Manager Name Role Phone Sherley Ramirez MD Primary Care Provider [phone] Reason for Visit * Reason Comments Med Refill Encounter Details Date Type Department Care Team ([facility] Contact Info) Description 08/07/2023 Refill [facility] [address] [place], [place] [phone] Sherley Ramirez MD [address] [place] [address] Pain Social History Tobacco Use Types Packs/Day Years Used Date Smoking Tobacco: Never Passive Smoke Exposure: Never Smokeless Tobacco: Never Alcohol Use Standard Drinks/Week Comments Never 0 (1 standard drink = 0.6 oz pur e alcohol) Depression Answer Date Recorded Patient Health Questionnaire-9 Score 8 06/20/2022 Housing Stability Answer Date Recorded What is your housing situation today? I have [employer] 06/18/[address] you li [...] Care Team (Late st Contact Info) Description 01/12/2025 12:45 PM EST Office Visit [facility] [address] [place] [address] Destinee Alaniz documented as of this encounter Visit Diagnoses Diagnosis Pain Generalized pain documented in this encounter Additional Health Concerns Assessment Noted Time PHQ-9 Depression Total Score: 8 06/21/19 23 2:04 PM EDT documented as of this encounter Care Teams Condominium Property Manager Relationship Specialty Start Date End Date Sherley Ramirez MD [address] [place] [address] PCP - General Family Medicine 09/09/20 documented as of this encounter
--- OUTSIDE RECORDS SUMMARY | 2024-11-18 21:54 | XMS_ITS | Clinical Summary ---
Author Organization [email or web address] Address [address] [facility] [address] [place] [address] Care Team Providers Care Machine Assembler For Puller Over Name Role Phone Sherley Ramirez MD Primary Care Provider [phone] Allergies Active Allergy Reactions Criticality Noted Date Comments Trazodone Nausea Low 11/09/2023 Wound Dressing Adhesive 03/31/2024 Medications acyclovir (Zovirax) 5 % ointment APPLY TO THE AFFECTED AREA(S) EVERY THREE HOURS, SIX TIMES DAILY 10/06/19 22 Active cloNIDine (Catapres) 0.1 MG tablet Take 1 tablet by mouth 2 times daily. 02/22/19 23 Active OXcarbazepine (Trileptal) 300 MG tablet TAKE 1 TABLET BY MOUTH EVERY MORNING 02/22/19 23 Active albuterol 108 (90 Base) MCG/ACT inhalerIndicati ons:Mild intermittent asthma without complication INHALE 2 PUFFS BY MOUTH EVERY 4 TO 6 HOURS NEEDED FOR COUGH, WHEEZING, OR SHORTNESS OF BREATH 8.5 g 1 08/26/19 23 Active hydrocortisone 1 % creamIndication s:Dermatitis APPLY TOPICALLY TO THE AFFECTED AREA(S) EVERY DAY DIRECTED 28 g 1 01/24/20 23 Active Blood Pressure Monitor misc Check BP daily 1 each 10/30/19 24 Active amLODIPine (Norvasc) 2.5 MG tablet Take 1 tablet (2.5 mg) by mouth Once per day. 90 tablet 3 11/24/19 24 2024 Active ibuprofen 800 MG tabletIndicatio ns:Pain TAKE 1 TABLET BY MOUTH EVERY 8 HOURS NEEDED FOR PAIN OR FEVER 30 tablet 1 03/07/19 25 Active magnesium oxide (Mag-Ox) 400 MG tablet Take 1 tablet (400 mg) by mouth Once per day. 90 tablet 3 03/25/19 25 Active Vitamin D High Potency 25 MCG (1000 UT) capsule Take 1 capsule (25 mcg) by mouth Once per day. 90 capsule 3 03/25/19 25 Active Rimegepant Sulfate (Nurtec) 75 MG tablet dispersibleIndi cations:Prediab etes,Encounter for immunization,Mi graine without aura, not intractable, without status migrainosus,Vit herrera deficiency place 1 tablet by translingual route on top of tongue, allow to dissolve then swallow once as needed for migraine; max 1 dose/24 hrs 8 tablet 1 03/25/19 25 Active QUEtiapine (SEROquel) 25 MG tablet Take 25-50 mg by mouth at bedtime. 01/22/20 24 Active sertraline (Zoloft) 100 MG tablet Take 1 tablet by mouth Once per day. 01/22/20 24 Active phentermine 15 MG capsule TAKE 1 CAPSULE BY MOUTH BEFORE BREAKFAST 30 capsule 04/22/19 25 Active folic acid (Folvite) 800 MCG tablet Take 1 tablet (0.8 mg) by mouth Once per day. 90 tablet 3 05/08/19 25 Active cetirizine (ZyrTEC) 10 MG tabletIndicatio ns:Non-seasonal allergic rhinitis due to other allergic trigger TAKE 1 TABLET BY MOUTH EVERY DAY 90 tablet 3 05/28/19 25 Active omeprazole (PriLOSEC) [address] capsuleIndicati ons:Generalized abdominal pain TAKE 1 CAPSULE BY MOUTH TWICE DAILY 180 capsule 1 08/12/19 25 Active topiramate (Topamax) 100 MG tabletIndicatio ns:Migraine without aura, not intractable, without status migrainosus TAKE 1 TABLET BY MOUTH TWICE DAILY 60 tablet 2 08/15/19 25 Active ulipristal (Myriam) 30 mg tablet Take one tablet by mouth up to five days after sex. Do not use more than once per menstrual cycle. If repeat dose is needed in same cycle, please contact prescriber. 1 tablet 11 08/20/19 25 Active acetaminophen (Liquid Pain Relief) 160 MG/5ML liquidIndicatio ns:Pain TAKE 20 ML BY MOUTH EVERY 8 HOURS NEEDED 300 mL 2 09/03/19 25 Active riboflavin (vitamin B2) 100 mg tablet tabletIndicatio ns:Vitamin deficiency TAKE 2 TABLETS BY MOUTH EVERY DAY 180 tablet 1 09/16/19 25 Active docusate sodium (Colace) 100 MG capsuleIndicati ons:Constipatio n, unspecified constipation type TAKE 1 CAPSULE BY MOUTH TWICE DAILY IN THE MORNING AND AT BEDTIME NEEDED FOR CONSTIPATION 180 capsule 1 10/21/19 25 Active docusate sodium (Colace) 100 MG capsuleIndicati ons:Constipatio n, unspecified constipation type TAKE 1 CAPSULE BY MOUTH TWICE DAILY IN THE MORNING AND AT BEDTIME NEEDED FOR CONSTIPATION 180 capsule 1 04/22/19 25 2024 Discontinued permethrin (Nix Creme Rinse) 1 % liquid Apply topically 1 (one) time for 1 dose. Wash hair with shampoo and towel dry. Apply lotion or cream rinse to saturate the hair and scalp. Leave on hair for 10 min, then rinse off with warm water; remove remaining nits with nit comb. May repeat 7 days 120 mL 1 11/18/19 25 2024 Active Problems Problem Noted Date Diagnosed Date [...] RPR, B12 -safety precautions, follow up prn Prediabetes 11/09/2023 Assessment & Plan (03/25/2024 1:21 [...] (06/25/2022 6:27 AM EDT): -previously followed by certified pediatric nurse practitioner, last seen in 2007 when she was 7 years old prior to starting stimulant -Echocardiogram in 2007 showed a very small ASD with non-significant [id number]-[id number] shunt -Normal EKG in 2007 adn 08/02/21 [...] prescribed Migraine headache 06/20/2022 Assessment & Plan (07/03/2024 5:03 AM EDT): >>ASSESSMENT AND PLAN FOR MIGRAINE HEADACHE WRITTEN ON 03/30/2024 12:48 PM BY SHERLEY RAMIREZ MD - MRI in July 2021 was normal - Continue Topirimate -Previously seen by Neurologist at [facility] -Continue Magnesium -Continue Riboflavin -Pt was prescribed Nurtec, but has not tried it yet from [facility], advised pt to picking machine operator helper from pharmacy - Referred to Neurology 03/25/24 >>ASSESSMENT AND PLAN FOR MIGRAINE WITHOUT AURA, NOT INTRACTABLE, WITHOUT STATUS MIGRAINOSUS WRITTEN ON 03/30/2024 12:48 PM BY SHERLEY RAMIREZ MD - MRI in July 2021 was normal - Continue Topirimate -Previously seen by Neurologist at [facility] -Continue Magnesium -Continue Riboflavin -Pt was prescribed Nurtec, but has not tried it yet from [facility], advised pt to picking machine operator helper from pharmacy - Prescribed topiramate (Topamax) 100 MG tablet 03/25/24 - Prescribed Rimegepant Sulfate (Nurtec) 75 MG tablet dispersible 03/25/24 - Prescribed magnesium oxide (Mag-Ox) 400 MG tablet 03/25/24 - Referred to Neurology 03/25/24 Assessment & Plan (06/25/2022 6:25 AM EDT): - MRI in July 2021 was normal - Continue Topirimate -Previously seen by Neurologist at [facility] -Continue Magnesium -Continue Riboflavin -Pt was prescribed Nurtec, but has not tried it yet from [facility], advised pt to picking machine operator helper from pharmacy Depression with anxiety 06/20/2022 Assessment & Plan (03/30/2024 12:52 PM EST): -followed by [facility] provider [facility] -Followed by Psychiatrist and [...] Plan (11/09/2023 7:14 AM EDT): -followed by [facility] provider [facility] -Followed by Psychiatrist and [...] Plan (06/25/2022 6:31 AM EDT): -followed by [facility] provider [facility] -Followed by Psychiatrist. - [...] spectrum disorder Elevated erythrocyte sedimentation rate 06/21/19 23 Assessment & Plan (06/25/2022 6:26 AM EDT): - seen by bag patcher because of family history of autoimmune disease (mother with psoriatic arthritis, grandfather with psoriatic arthritis, and grandmother with rheumatoid arthritis) - bag patcher's impression was it was likely due to [...] albuterol; continue judicious use of albuterol prnl Vitamin D deficiency 03/05/2022 Assessment & Plan (07/03/2024 5:02 AM EDT): >>ASSESSMENT AND PLAN FOR VITAMIN DEFICIENCY WRITTEN ON 03/25/2024 3:10 PM BY ALIZA PASCAL MA - Prescribed riboflavin (vitamin B2) 100 mg tablet tablet - Prescribed Rimegepant Sulfate (Nurtec) 75 MG tablet dispersible Allergic rhinitis 01/01/2018 Assessment & Plan (06/25/2022 [...] Plan (03/30/2024 12:48 PM EST): -followed by [facility] provider [facility] -Followed by Psychiatrist. - [...] Plan (11/09/2023 7:13 AM EDT): -followed by [facility] provider [facility] -Followed by Psychiatrist. - [...] Plan (06/25/2022 6:31 AM EDT): -followed by S provider [facility] -Followed by Psychiatrist. - [...] Encounters Date Type Department Care Team Description 11/17/2024 Orders Only [facility] [address] [place] [phone] Sherley Ramirez MD 10/20/2024 Refill [facility] [address] [place] [phone] Sherley Ramirez MD Constipation, unspecified constipation type 09/14/2024 Refill [facility] [address] [place] [phone] Sherley Ramirez MD Vitamin deficiency 09/01/2024 Refill [facility] PEDS [address] [place] [address] Sherley Ramirez MD Pain 08/19/2024 10:30 AM EDT Procedure Visit [facility] [address] [place] [phone] Teetee Kramer CNM Nexplanon removal 08/19/2024 Travel 08/18/2024 Telephone [facility] [address] [place] [phone] Teetee Kramer CNM chart prep 08/18/2024 Refill [facility] [address] [place] [address] Sherley Ramirez MD Pain from Last 3 Months Immunizations Immunization Administration Dates Next Due DTaP 11/30/2003, 1,02/09/2000,11/02,1999 [...] Passive Smoke Exposure: Never Smokeless Tobacco: Never Tobacco Cessation:Counseling Given: Not Answered Alcohol Use Standard Drinks/Week Comments Never 0 (1 standard drink = 0.6 oz pur e alcohol) Depression Answer Date Recorded Patient Health Questionnaire-9 Score 6 03/25/2024 Patient Health Questionnaire-9 Score 6 03/25/2024 Last PHQ-9: Questionnaire Data Not on file 0 03/25/2024 Housing Stability Answer Date Recorded What is your housing situation today? I have rubens garcia 08/19/[address] you li ve. Do you have problems with any of the following? None of the above 08/19/2024 Food Insecurity Answer Date Recorded Within the past 12 months, y ou worried that your food would run out before you got money to buy more: Never True 08/19/2024 Within the past 12 months,th e food you bought just didn't last and you didn't have enough money to get more: Never True Transportation Answer Date Recorded In the past 12 months, has l ack of transportation kept you from medical appts, meetings, work or from getting things needed for daily living? No 08/19/2024 Utilities Answer Date Recorded In the past 12 months, has t he electric, gas, oil or water company threatened to shut off services in your home? No 08/19/2024 Depression Answer Date Recorded Patient Health Questionnaire-2 Score 1 03/25/2024 Internet Access Answer Date Recorded Internet Access Q1 Yes 08/19/2024 Internet Access Q2 Not on file 08/19/2024 Comments No Intention Date Recorded No desire to become (finding) 0 08/19/2024 Sex and Gender Information Value Date Recorded Sex Assigned at Female 12/05/2021 10:16 AM EDT Legal Sex Female 10:16 AM EDT Gender Identity Female 12/05/2021 10:16 AM EDT Sexual Orientation Straight 12/05/2021 10 :16 AM EDT Last Filed Vital Signs Vital Sign Reading Time Taken Comments Blood Pressure 143/88 08/19/2024 10:21 AM EDT Pulse 72 08/19/2024 10:21 AM EDT Temperature 36.2 C (97.2 F) 06/03/2024 3:23 PM EDT Respiratory Rate 16 08/19/2024 10:21 AM EDT Oxygen Saturation 99% 06/03/2024 3:23 PM EDT Inhaled Oxygen Concentration - - Weight 143 kg (316 lb) 08/19/2024 10:21 AM EDT Height 172.7 cm (5' 8 ) 08/19/2024 10:21 AM EDT Body Mass Index 48.05 08/19/2024 10:21 AM EDT Plan of Treatment Upcoming Encounters Date Type Department Care Team (Late st Contact Info) Description 01/12/2025 12:45 PM EST Office Visit [facility] ADULT DENTAL [address] [place] [address] Destinee Alaniz Health Maintenance Due Date Last Done Comments Dental Oral Exam 07/23/2019 01/20/2019, , 08/29/2016, Additional history exists Dental Prophylaxis 07/23/2019 01/20/2019, 1 02/06/2017, 08/29/2016, Additional history exists Dental X-Ray: Bitewings 01/22/2020 01/21/20 19, 10/19/2017, 08/29/2016, Additional history exists Dental X-Ray: Full Mouth 10/20/2020 10/19/2017, 0604/2013 COVID-19 Vaccine ( season) 2024 04/18/2023, 08/11/2020, 06/11/2020 Influenza Vaccine (#1) 2024 , 11/02/2021, 06/21/2021, Additional history exists Alcohol/Substance Use Screening 03/25/2025 03/25/2024 Depression Screening 03/25/2025 03/25/2024, 03/25/19 Diabetes: Hemoglobin A1C 05/07/2025 025, 03/25/2024, 07/24/2023, Additional history exists Disability Screening 08/19/2025 08/19/2024 Family Planning (PISQ) 08/19/2025 08/19/2024 SDOH Screening 08/19/2025 08/19/2024 Tobacco Screening 08/19/2025 08/19/2024 Pap Smear 01/01/2026 01/01/2023, 01/01/2023 Lipid Panel 05/07/2029 05/07/2024, 06/05, 12/07/2020 DTaP/Tdap/Td Vaccines (8 - [...] C Screening Completed 12/27/2021 , 08/14/2019, 07/10/2019 Pneumococcal Vaccine: Pediatrics (0 to 5 Years) and At-Risk Patients (6 to 49) Years Completed 03/25/2024, 11/08/2000, 02/14/2000, Additional history exists Meningococcal B Vaccine Aged Out No l onger eligible based on patient's age to complete this topic RSV under 20 months Aged Out No longe r eligible based on patient's age to complete this topic Rotavirus Vaccines Aged Out No longer eligible based on patient's age to complete this topic Procedures Procedure Name Priority Date/Time Associated Diagnosis Comments WI REMOVAL NON-BIODEGRADABLE DRUG DELIVERY IMPLANT Routine 08/19/2024 10:40 AM EDT Nexplanon removal HEMOGLOBIN A1C Routine 05/07/2024 11:28 AM EDT Prediabetes LIPID PANEL WITH REFLEX TO DIRECT LDL Routine 05/07/2024 11:28 AM EDT Elevated blood pressure reading in office without diagnosis of hypertension Prediabetes Class 3 severe obesity due to excess calories without serious comorbidity with body mass index (BMI) of 50.0 to 59.9 in adult PAP SMEAR Routine 01/01/2023 12:50 PM EST [...] Recently Relevant to Health Maintenance Results * WI REMOVAL NON-BIODEGRADABLE DRUG DELIVERY IMPLANT (08/19/2024 10:40 AM EDT) Teetee Saravia CNM - 08/19/2024 10:40 AM EDT Teetee Kramer CNM 08/19/2024 11:12 AM Insertion/Removal of Contraceptive Capsule Date/Time: 08/19/2024 10:40 AM Performed by: Teetee Kramer CNM Authorized by: Teetee Kramer CNM Confirmed correct patient, procedure, site, and patient consented: Yes Participating Staff: Teetee Kramer CNM Consent: Consent obtained: Verbal and written Consent given by: Patient Procedural risks and benefits discussed: Yes Patient questions answered: yes Patient agrees, verbalizes understanding, and wants to proceed: yes Instructions and paperwork completed: yes [place] Protocol: Patient states understanding of procedure being performed: yes Site marked: yes Indication: Indication: presence of non-biodegradable drug delivery implant Pre-procedure: Pre-procedure timeout performed: yes Prepped with: povidone-iodine Local anesthetic: 2ml 2% lidocaine. The site was cleaned and prepped in a sterile fashion: yes Procedure: Procedure: Removal Small stab incision was made in arm: yes Site was closed with steri-strips and pressure bandage applied: yes us Teetee Kramer CNM IN CLINIC/BEDSIDE ORDERAB LES Final Result * (ABNORMAL) Lipid Panel with Reflex to Direct LDL (05/07/2024 11:28 AM EDT) Triglycerides 102 <150 mg/dL [facility] Comment:Desirable Triglyceri de: less than 150 mg/dLBorderline High Triglyceride 150-199 mg/dLHigh Triglyceride: 200-499 mg/dLVery High Triglyceride: greater than or equal to 5OO mg/dL Cholesterol 135 <200 mg/dL [facility] Comment:Desirable Cholestero l: less than 200 mg/dLBorderline High Cholesterol: 200-239 mg/dLHigh Cholesterol: greater than 239 mg/dL LDL Cholesterol Calculated 80 <100 mg/dL [facility] Comment:Desirable LDL: less than 100 mg/dLNear Optimal/Above Optimal LDL: 110- 129 mg/dLBorderline High LDL: 130-159 mg/dLHigh LDL: 160-189 mg/dLVery High LDL: greater than or equal to 190 mg/dL HDL Cholesterol 35(L) >40 mg/dL [facility] Comment:Desirable HDL: great er than 40 mg/dL Note: This HDL assay may give artificially low results in patients with liver disease. Blood 05/07/2024 11:2 8 AM EDT 05/07/2024 1:05 PM EDT Sherley Ramirez MD LAB BLOOD ORDERABLES Final Resul t Performing Organization Address [facility] Co de Phone Number [facility] [address] [place] [phone] * Hemoglobin A1c (05/07/2024 11:28 AM EDT) Hemoglobin A1c 6.0 <6.0 % [facility] Comment:Hemoglobin A1C Refer ence Range Adults: 4.8 - 6.0 % Non diabetic: < 6.0 % Goal: < 7.0 %Additional Action Suggested: > 8.0 %Note: Hemoglobin A1c results are invalid for patients with abnormal amounts of HbF. Blood transfusions may impact the HbA1c concentration in the patient sample. Estimated Average Glucose 126 mg/dL [facility] Comment:eAG = Estimated ave rage glucose which is %A1C expressed asaverage glucose, using the formula of the B5D-JyngjygIzovzha Glucose study (ADAG), Diabetes Care, Vol.31,#8,2007 Blood Venous blood specimen / Unknown 05/07/2024 11:28 AM EDT 05/07/2024 1:05 PM EDT Sherley Ramirez MD LAB BLOOD ORDERABLES Final Resul t Performing Organization Address [facility] Co de Phone Number [facility] [address] [place] [address] [phone] * Pap Smear (01/01/2023 12:50 PM EST) 01/01/2023 12:5 0 PM EST 01/02/2023 11:40 AM EST [facility] - 01/11/2023 4:11 PM EST ----- ------- Name: Alicia Hassan Age/Sex: 22/F : 2000 Unit#: [id number] Attend Dr: TEETEE KRAMER CNM Re01/01/23 Status: DEP REF Location: [facility] Disch: ----- ------- SPEC : [id number] RECD: 01/02/23-1140 STATUS: ANH RAMOS NUM: [id number] VEE: 01/01/23-[address]: TEETEE KRAMER CNM ENTERED: 01/02/23-1310 SP TYPE: Pap Smr OTHR : ORDERED: Pap Smear Interpretation Satisfactory for evaluation. Negative for intraepithelial lesion or malignancy. Clinical Information LMP: Unknown date Previous PAP test: Unknown date/findings Material Received ThinPrep-Vaginal/Cervical ----- ------- Signed (signature on file) PORTIA Thompson ([facility]) 01/11/23 1611 ----- ------- END OF REPORT Teetee BLANK LAB CYTOLOGY ORDERABLES F inal Result Performing Organization Address [facility] Co de Phone Number [facility] [address] [place] [phone] * HEPATITIS C AB W/REFL TO HCV RNA, QN, PCR (12/27/2021 12:49 PM EST) HEPATITIS C ANTIBODY NON-REACTI VE NON-REACT [facility] INDEX 0.04 <1.00 [facility] Comment: HCV antibody was non-reactive. There is no laboratory evidence of HCV infection. In most cases, no further action is required. However, if recent HCV exposure is suspected, a test for HCV RNA (test code 83915) is suggested. For additional information please refer to http://education.[email or web address]faq/QMV33b9 (This link is being provided for informational/ educational purposes only.) 12/27/2021 12:4 9 PM EST Sherley Ramirez MD HISTORICAL/NON ORDERABLE LABS Fi nal Result Performing Organization Address City/[facility]/ZIP Co de Phone Number CONVERTED [facility]GACY LABS * HIV 1/2 ANTIGEN/ANTIBODY,FOURTH GENERATION W/RFL (12/27/2021 12:49 PM EST) HIV-1/2 ANTIGEN AND ANTIBODIES, 4TH GENERATION W/ REFLEX NON-REACT [facility] NON-REACT [facility] Comment: HIV-1 antigen and HIV-1/HIV-2 antibodies were not detected. There is no laboratory evidence of HIV infection. PLEASE NOTE: This information has been disclosed to you from records whose confidentiality may be protected by state law. If your state requires such protection, then the state law prohibits you from making any further disclosure of the information without the specific written consent of the person to whom it pertains, or as otherwise permitted by law. A general authorization for the release of medical or other information is NOT sufficient for this purpose. For additional information please refer to http://education.[employer]/faq/YIF816 (This link is being provided for informational/ educational purposes only.) The performance of this assay has not been clinically validated in patients less than 2 years old. 12/27/2021 12:4 9 PM EST us Sherley Ramirez MD LAB BLOOD ORDERABLES Final Resul t CONVERTED [facility]GACY LABS from Last 3 Months or Most Recently Relevant to Health Maintenance Insurance [facility] STANDARD MEDICARE [facility] Care Teams Machine Assembler For Puller Over Relationship Specialty Start Date End Date Sherley Ramirez MD [address] [place] [phone] PCP - General Family Medicine 09/09/20
--- OUTSIDE RECORDS SUMMARY | 2024-11-18 21:54 | XMS_ITS | Encounter Summary ---
Author Organization [employer] Address [address] [facility] [address] [place] [address] Care Team Providers Care Chairman Ceo Name Role Phone Sherley Ramirez MD Primary Care Provider [phone] Reason for Visit * Reason Onset Date Comments PT-1 07/19/2023 Encounter Details Date Type Department Care Team ([facility] Contact Info) Description 07/19/2023 Telephone [facility] [address] [place], [place] [phone] Sherley Ramirez MD [address] [place], [place] [phone] PT-1 Social History Tobacco Use Types Packs/Day [...] Y/N: Yes Provider name or facility name: [facility] Facility Address: [address] [place] [address] Escort needed: Y/N: Yes Do you have a wheelchair: Y/N: No If yes- Manual or electric: no Visits: 3 documented in this encounter Plan of Treatment Upcoming Encounters Date Type Department Care Team (Late st Contact Info) Description 01/12/2025 12:45 PM EST Office Visit [facility] ADULT DENTAL [address] [place] [address] Destinee Alaniz documented as of this encounter Visit Diagnoses Not on filedocumented in this encounter Additional Health Concerns Assessment Noted Time PHQ-9 Depression Total Score: 8 06/21/19 23 2:04 PM EDT documented as of this encounter Care Teams Chairman Ceo Relationship Specialty Start Date End Date Sherley Ramirez MD [address] [place] [address] PCP - General Family Medicine 09/09/20 documented as of this encounter
--- OUTSIDE RECORDS SUMMARY | 2024-11-18 21:54 | XMS_ITS | Encounter Summary ---
Author Organization [employer] Address 75 [facility] 7t [place] [address] Care Team Providers Care Deboner Name Role Phone Sherley Ramirez MD Primary Care Provider [phone] Encounter Details Date Type Department Care Team (Late Contact Info) Description 03/01/2022 Orders Only [facility] CHC MED & PEDS [address] [place], [place] [phone] Sarah Howard LPN Social History Tobacco Use [...] Department Care Team (Late Contact Info) Description 01/12/2025 12:45 PM EST Office Visit [facility] ADULT DENTAL [address] [place] [address] Destinee Alaniz documented as of this encounter Procedures Procedure Name Priority Date/Time Associated Diagnosis Comments BETA-HCG, QUANTITATIVE (TUMOR MARKER) Routine 01/01/2023 1:24 PM EST PAP SMEAR Routine 01/01/2023 12:50 PM EST documented in this encounter Results * hCG, Total, Quantitative (01/01/2023 1:24 PM EST) HCG Quantitative <2 mIU/mL [facility] Comment:Weeks post LMP Appro ximate hCG(Last Menstrual Period) Range (mIU/ml)3 - 4 weeks 9 - 1304 - 5 weeks 75 - 2,6005 - 6 weeks 850 - 20,8006 - 7 weeks 4000 - 100,2007 - 12 weeks 11,500 - 289,38184 - 16 weeks 18,300 - 137,19973 - 29 weeks (2nd trimester) 1,400 - 53,33232 - 41 weeks (3rd trimester) 940 - 60,000The Kim B- hCG assay is used for the early detection ofpregnancy; it cannot be used to diagnose any conditionunrelated to . If a B-hCG level is not supportedby the clinical evidence, results should be confirmed by analternative method (qualitative urine hCG, for example). 01/01/2023 1:24 PM EST 01/01/2023 4:15 PM EST us Nisreen Kramer [facility] BLOOD ORDERABLES Henrietta l Result [facility] [address] [place] [phone] * Pap Smear (01/01/2023 12:50 PM EST) 01/01/2023 12:5 0 PM EST 01/02/2023 11:40 AM EST Narrative [facility] - 01/11/2023 4:11 PM EST ----- ------- Name: Alicia Hassan Age/Sex: 22/ : 2000 Unit#: [id number] Attend Dr: NISREEN KRAMER [facility] Re01/01/23 Status: DEP REF Location: [facility] Disch: ----- ------- SPEC : [id number] RECD: 01/02/23 STATUS: ANH RAMOS NUM: [id number] VEE: 01/01/23-[address] [facility] [address]: NISREEN KRAMER [facility] ENTERED: 01/02/23-1314 SP TYPE: Pap Smr OTHR DR: ORDERED: Pap Smear Interpretation Satisfactory for evaluation. Negative for intraepithelial lesion or malignancy. Clinical Information LMP: Unknown date Previous PAP test: Unknown date/findings Material Received ThinPrep-Vaginal/Cervical ----- ------- Signed (signature on file) PORTIA Thompson ([facility]) 01/11/23 1611 ----- ------- END OF REPORT us Nisreen [facility] CYTOLOGY ORDERABLES F inal Result [facility] [address] [place] [address] [phone] documented in this encounter Visit Diagnoses Not on filedocumented in this encounter Care Teams Deboner Relationship Specialty Start Date End Date Sherley Ramirez MD [address] [place] [address] PCP - General Family Medicine 09/09/20 documented as of this encounter
--- OUTSIDE RECORDS SUMMARY | 2024-11-18 21:55 | XMS_ITS | Encounter Summary ---
Author Organization [employer] Address [address] [facility] 7t [place] [address] Care Team Providers Care Sociology Adjunct Instructor Name Role Phone Sherley Ramirez MD Primary Care Provider [phone] Reason for Visit * Reason Onset Date Comments PT1 05/19/2024 Encounter Details Date Type Department Care Team ([facility] st Contact Info) Description 05/19/2024 Telephone [facility] MEDICINE [address] [place], [place] [phone] Sherley Ramirez MD [address] [place], [place] [phone] PT1 Social History Tobacco Use Types Packs/Day [...] encounter Miscellaneous Notes * Telephone Encounter - Kristan Hall - 05/19/2024 3:41 PM EDT Patient calling requesting PT1 Home Address verified: Y/N: Yes Provider name or facility name: [facility], [address] [facility], [address] Escort needed: Y/N: Yes Do you have a wheelchair: Y/N: No If yes- Manual or electric: N/A Visits: (2x monthly) Patient calling requesting PT1 Home Address verified: Y/N: Yes Provider name or facility name: [facility] - [address] [place], [place] Escort needed: Y/N: Yes Do you have a wheelchair: Y/N: No If yes- Manual or electric: N/A Visits: (2x monthly) documented in this encounter Plan of Treatment Upcoming Encounters Date Type Department Care Team (Late st Contact Info) Description 01/12/2025 12:45 PM EST Office Visit [facility] ADULT DENTAL [address] [place] [address] Destinee Alaniz documented as of this encounter Visit Diagnoses Not on filedocumented in this encounter Additional Health Concerns Assessment Noted Time PHQ-9 Depression Total Score: 6 03/25/19 25 11:05 AM EST documented as of this encounter Care Teams Sociology Adjunct Instructor Relationship Specialty Start Date End Date Sherley Ramirez MD [address] [place] [address] PCP - General Family Medicine 09/09/20 documented as of this encounter
--- OUTSIDE RECORDS SUMMARY | 2024-11-18 21:55 | XMS_ITS | Encounter Summary ---
Author Organization [employer] Address 75 [facility] 7t [place] [address] Care Team Providers Care Tire Sorter Name Role Phone Sherley Ramirez MD Primary Care Provider [phone] Reason for Visit * Reason Onset Date Comments Appointment Request 02/18/2024 Encounter Details Date Type Department Care Team ([facility] Contact Info) Description 02/18/2024 Telephone [facility] MEDICINE [address] [place], [place] [phone] Sherley Ramirez MD [address] [place], [place] [phone] Appointment Request Social History Tobacco Use Types [...] Miscellaneous Notes * Telephone Encounter - Noel Galvez - 02/18/2024 4:28 PM EST Tc from mom requesting to schedule physical with pcp. Please contact mom at [phone]. Pt 2/2 documented in this encounter Plan of Treatment Upcoming Encounters Date Type Department Care Team (Late st Contact Info) Description 01/12/2025 12:45 PM EST Office Visit [facility] ADULT DENTAL [address] [place] [address] Destinee Alaniz documented as of this encounter Visit Diagnoses Not on filedocumented in this encounter Additional Health Concerns Assessment Noted Time PHQ-9 Depression Total Score: 22 024 7:08 AM EDT documented as of this encounter Care Teams Tire Sorter Relationship Specialty Start Date End Date Sherley Ramirez MD [address] [place] [address] PCP - General Family Medicine 09/09/20 documented as of this encounter
--- OUTSIDE RECORDS SUMMARY | 2024-11-18 21:55 | XMS_ITS | Encounter Summary ---
Author Organization [employer] Address 75 [facility] 7t [place] [address] Care Team Providers Care Second Cook And Baker Name Role Phone Sherley Ramirez MD Primary Care Provider [phone] Reason for Visit * Reason Comments Med Refill Encounter Details Date Type Department Care Team ([facility] Contact Info) Description 08/22/2022 Refill [facility] MEDICINE [address] [place], [place] [phone] Sherley Ramirez MD [address] [place], [place] [phone] Dermatitis; Pain Social History Tobacco Use Types [...] Upcoming Encounters Date Type Department Care Team ([facility] Contact Info) Description 01/12/2025 12:45 PM EST Office Visit [facility] ADULT DENTAL [address] [place] [address] Destinee Alaniz documented as of this encounter Visit Diagnoses Diagnosis Dermatitis Contact dermatitis and other eczema, due to unspecified cause Pain Generalized pain documented in this encounter Additional Health Concerns Assessment Noted Time PHQ-9 Depression Total Score: 8 06/21/19 23 2:04 PM EDT documented as of this encounter Care Teams Second Cook And Baker Relationship Specialty Start Date End Date Sherley Ramirez MD [address] [place] [address] PCP - General Family Medicine 09/09/20 documented as of this encounter
--- OUTSIDE RECORDS SUMMARY | 2024-11-18 21:55 | XMS_ITS | Encounter Summary ---
Author Organization [employer] Address 75 [facility] 7t [place] [address] Care Team Providers Care Systems Integration Engineer Name Role Phone Sherley Ramirez MD Primary Care Provider [phone] Reason for Visit * Reason Onset Date Comments PT-1 06/18/2024 Encounter Details Date Type Department [facility] Description 06/18/2024 Telephone [facility] MEDICINE [address] [place], [place] [phone] Sherley Ramirez MD [address] [place], [place] [phone] PT-1 Social History Tobacco Use Types Packs/Day [...] encounter Miscellaneous Notes * Telephone Encounter - Jesse Guajardo - 06/18/2024 3:04 PM EDT Patient calling requesting PT1 Home Address verified: Y/N: Yes Provider name or facility name: [facility] [address] Escort needed: Y/N: Yes Do you have a wheelchair: Y/N: No If yes- Manual or electric: Visits: (-) documented in this encounter Plan of Treatment Upcoming Encounters Date Type Department Care Team (Late st Contact Info) Description 01/12/2025 12:45 PM EST Office Visit [facility] ADULT DENTAL [address] [place] [address] Destinee Alaniz documented as of this encounter Visit Diagnoses Not on filedocumented in this encounter Additional Health Concerns Assessment Noted Time PHQ-9 Depression Total Score: 6 03/25/19 25 11:05 AM EST documented as of this encounter Care Teams Systems Integration Engineer Relationship Specialty Start Date End Date Sherley Ramirez MD [address] [place] [address] PCP - General Family Medicine 09/09/20 documented as of this encounter
--- OUTSIDE RECORDS SUMMARY | 2024-11-18 21:55 | XMS_ITS | Encounter Summary ---
Author Organization [employer] Address 75 [facility] 7t [place] [address] Care Team Providers Care Button Reclaimer Name Role Phone Sherley Ramirez MD Primary Care Provider [phone] Reason for Visit * Reason Onset Date Comments PT-1 04/03/2024 Encounter Details Date Type Department Care Team ([facility] Contact Info) Description 04/03/2024 Telephone [facility] MEDICINE [address] [place], [place] [phone] Sherley Ramirez MD [address] [place], [place] [phone] PT-1 Social History Tobacco Use Types Packs/Day [...] Miscellaneous Notes * Telephone Encounter - Arian Zarco - 04/03/2024 3:26 PM EST Patient calling requesting PT1 Home Address verified: Y/N: Yes Provider name or facility name: [facility], [address] [facility] [address], [place] [address] Escort needed: Y/N: Yes Do you have a wheelchair: Y/N: No If yes- Manual or electric: N/A Visits: (amount of visits) ( x monthly, weekly, daily) 3 times a month documented in this encounter Plan of Treatment Upcoming Encounters Date Type Department Care Team (Late st Contact Info) Description 01/12/2025 12:45 PM EST Office Visit [facility] ADULT DENTAL [address] [place] [address] Destinee Alaniz documented as of this encounter Visit Diagnoses Not on filedocumented in this encounter Additional Health Concerns Assessment Noted Time PHQ-9 Depression Total Score: 6 03/25/19 25 11:05 AM EST documented as of this encounter Care Teams Button Reclaimer Relationship Specialty Start Date End Date Sherley Ramirez MD [address] [place] [address] PCP - General Family Medicine 09/09/20 documented as of this encounter
--- OUTSIDE RECORDS SUMMARY | 2024-11-18 21:55 | XMS_ITS | Encounter Summary ---
Author Organization [employer] Address [address] [facility] 7t [place] [address] Care Team Providers Care Security Compliance Engineer Name Role Phone Sherley Ramirez MD Primary Care Provider [phone] Encounter Details Date Type Department Care Team ([facility] st Contact Info) Description 11/20/2023 Orders Only [facility] MEDICINE [address] [place], [place] [phone] Sherley Ramirez MD [address] [place], [place] [phone] Social History Tobacco Use Types Packs/Day Years [...] Description 01/12/2025 12:45 PM EST Office Visit [facility] ADULT DENTAL [address] [place] [address] Destinee Alaniz documented as of this encounter Visit Diagnoses Not on filedocumented in this encounter Additional Health Concerns Assessment Noted Time PHQ-9 Depression Total Score: 22 024 7:08 AM EDT documented as of this encounter Care Teams Security Compliance Engineer Relationship Specialty Start Date End Date Sherley Ramirez MD [address] [place] [address] PCP - General Family Medicine 09/09/20 documented as of this encounter
--- OUTSIDE RECORDS SUMMARY | 2024-11-18 21:55 | XMS_ITS | Encounter Summary ---
Author Organization [employer] Address [address] [facility] 7t [place] [address] Care Team Providers Care Telecommunications Technician Name Role Phone Sherley Ramirez MD Primary Care Provider [phone] Encounter Details Date Type Department Care Team ([facility] st Contact Info) Description 12/18/2023 Telephone [facility] MEDICINE [address] [place], [place] [phone] Sherley Ramirez MD [address] [place], [place] [phone] Social History Tobacco Use Types Packs/Day Years [...] Description 01/12/2025 12:45 PM EST Office Visit [facility] ADULT DENTAL [address] [place] [address] Destinee Alaniz documented as of this encounter Visit Diagnoses Not on filedocumented in this encounter Additional Health Concerns Assessment Noted Time PHQ-9 Depression Total Score: 22 024 7:08 AM EDT documented as of this encounter Care Teams Telecommunications Technician Relationship Specialty Start Date End Date Sherley Ramirez MD [address] [place] [address] PCP - General Family Medicine 09/09/20 documented as of this encounter
--- OUTSIDE RECORDS SUMMARY | 2024-11-18 21:55 | XMS_ITS | Encounter Summary ---
Author Organization [employer] Address [address] [facility] 7t [place] [address] Care Team Providers Care Outreach And Education Social Worker Name Role Phone Sherley Ramirez MD Primary Care Provider [phone] Reason for Visit * Reason Onset Date Comments Nurse Triage 11/03/2022 Encounter Details Date Type Department Care Team ([facility] st Contact Info) Description 11/03/2022 Telephone [facility] MEDICINE [address] [place], [place] [phone] Sherley Ramirez MD [address] [place], [place] [phone] Nurse Triage Social History Tobacco Use Types [...] control. Pt is advised to come to [facility] to be seen for urinary symptoms and [...] 12:45 PM EST Office Visit [facility] ADULT DENTAL [address] [place] [address] Destinee Alaniz documented as of this encounter Visit Diagnoses Not on filedocumented in this encounter Additional Health Concerns Assessment Noted Time PHQ-9 Depression Total Score: 8 06/21/19 23 2:04 PM EDT documented as of this encounter Care Teams Outreach And Education Social Worker Relationship Specialty Start Date End Date Sherley Ramirez MD [address] [place] [address] PCP - General Family Medicine 09/09/20 documented as of this encounter
--- OUTSIDE RECORDS SUMMARY | 2024-11-18 21:55 | XMS_ITS | Encounter Summary ---
Author Organization [employer] Address 75 [facility] 7t [place] [address] Care Team Providers Care Last Sawyer Name Role Phone Sherley Ramirez MD Primary Care Provider [phone] Reason for Visit * Reason Onset Date Comments Nurse Triage 01/14/2024 Encounter Details Date Type Department Care Team ([facility] st Contact Info) Description 01/14/2024 Telephone [facility] MEDICINE [address] [place], [place] [phone] Sherley Ramirez MD [address] [place], [place] [phone] Nurse Triage Social History Tobacco Use Types [...] wheezing. Pt is advised to come to [facility] today but, reports can't come for 3 daysdue to transportation. Pt is advised to come to [facility] as soon as transportation is available and [...] Description 01/12/2025 12:45 PM EST Office Visit [facility] ADULT DENTAL [address] [place] [address] Destinee Alaniz documented as of this encounter Visit Diagnoses Not on filedocumented in this encounter Additional Health Concerns Assessment Noted Time PHQ-9 Depression Total Score: 22 024 7:08 AM EDT documented as of this encounter Care Teams Last Sawyer Relationship Specialty Start Date End Date Sherley Ramirez MD [address] [place] [address] PCP - General Family Medicine 09/09/20 documented as of this encounter
--- OUTSIDE RECORDS SUMMARY | 2024-11-18 21:55 | XMS_ITS | Encounter Summary ---
Author Organization [employer] Address 75 [facility] 7t [place] [address] Care Team Providers Care Document Specialist Name Role Phone Sherley Ramirez MD Primary Care Provider [phone] Reason for Visit * Reason Onset Date Comments Nurse Triage 02/11/2024 Encounter Details Date Type Department Care Team ([facility] st Contact Info) Description 02/11/2024 Telephone [facility] MEDICINE [address] [place], [place] [phone] Sherley Ramirez MD [address] [place], [place] [phone] Nurse Triage Social History Tobacco Use Types [...] encounter Miscellaneous Notes * Telephone Encounter - Estivenmichael PlasenciaAbhijit - 02/11/2024 3:54 PM EST Symptom: Chest Pain - Adult Outcome: Talk to a nurse or provider within 15 minutes Reason: Started within the past 3 days The caller accepted this outcome. Contact pt at [phone] documented in this encounter Plan of Treatment Upcoming Encounters Date Type Department Care Team (Late st Contact Info) Description 01/12/2025 12:45 PM EST Office Visit [facility] ADULT DENTAL [address] [place] [address] Destinee Alaniz documented as of this encounter Visit Diagnoses Not on filedocumented in this encounter Additional Health Concerns Assessment Noted Time PHQ-9 Depression Total Score: 22 024 7:08 AM EDT documented as of this encounter Care Teams Document Specialist Relationship Specialty Start Date End Date Sherley Ramirez MD [address] [place] [address] PCP - General Family Medicine 09/09/20 documented as of this encounter
--- OUTSIDE RECORDS SUMMARY | 2024-11-18 21:55 | XMS_ITS | Encounter Summary ---
Author Organization [employer] Address 75 [facility] 7t [place] [address] Care Team Providers Care Carpet Layer Name Role Phone Sherley Ramirez MD Primary Care Provider [phone] Reason for Visit * Reason Comments Med Refill Encounter Details Date Type Department Care Team (Late Contact Info) Description 08/18/2022 Refill [facility] MEDICINE [address] [place], [place] [phone] Sherley Ramirez MD [address] [place], [place] [phone] Pain Social History Tobacco Use Types Packs/Day [...] Description 01/12/2025 12:45 PM EST Office Visit [facility] ADULT DENTAL [address] [place] [address] Destinee Alaniz documented as of this encounter Visit Diagnoses Diagnosis Pain Generalized pain documented in this encounter Additional Health Concerns Assessment Noted Time PHQ-9 Depression Total Score: 8 06/21/19 23 2:04 PM EDT documented as of this encounter Care Teams Carpet Layer Relationship Specialty Start Date End Date Sherley Ramirez MD [address] [place] [address] PCP - General Family Medicine 09/09/20 documented as of this encounter
--- OUTSIDE RECORDS SUMMARY | 2024-11-18 21:55 | XMS_ITS | Encounter Summary ---
Author Organization [employer] Address 75 [facility] 7t [place] [address] Care Team Providers Care Dental Officer Name Role Phone Sherley Ramirez MD Primary Care Provider [phone] Reason for Visit * Reason Comments Med Refill Encounter Details Date Type Department Care Team ([facility] Contact Info) Description 03/28/2024 Refill [facility] CHC MED & PEDS [address] [place], [place] [phone] Sherley Ramirez MD [address] [place] [address] Pain Social History Tobacco Use Types Packs/Day [...] Description 01/12/2025 12:45 PM EST Office Visit [facility] ADULT DENTAL [address] [place] [address] Destinee Alaniz documented as of this encounter Visit Diagnoses Diagnosis Pain Generalized pain documented in this encounter Additional Health Concerns Assessment Noted Time PHQ-9 Depression Total Score: 6 03/25/19 25 11:05 AM EST documented as of this encounter Care Teams Dental Officer Relationship Specialty Start Date End Date Sherley Ramirez MD [address] [place] [address] PCP - General Family Medicine 09/09/20 documented as of this encounter
--- OUTSIDE RECORDS SUMMARY | 2024-11-18 21:55 | XMS_ITS | Encounter Summary ---
Author Organization [employer] Address 75 [facility] 7t [place] [address] Care Team Providers Care Boat Builder Name Role Phone Sherley Ramirez MD Primary Care Provider [phone] Reason for Visit * Reason Comments Med Refill Encounter Details Date Type Department Care Team ([facility] Contact Info) Description 08/18/2024 Refill [facility] MED & PEDS [address] [place], [place] [phone] Sherley Ramirez MD [address] [place] [address] Pain Social History Tobacco Use Types Packs/Day [...] Q2 Not on file 08/19/2024 Comments No Sex and Gender Information Value [...] Description 01/12/2025 12:45 PM EST Office Visit [facility] ADULT DENTAL [address] [place] [address] Destinee Alaniz documented as of this encounter Visit Diagnoses Diagnosis Pain Generalized pain documented in this encounter Additional Health Concerns Assessment Noted Time PHQ-9 Depression Total Score: 6 03/25/19 25 11:05 AM EST documented as of this encounter Care Teams Boat Builder Relationship Specialty Start Date End Date Sherley Ramirez MD [address] [place] [address] PCP - General Family Medicine 09/09/20 documented as of this encounter
--- OUTSIDE RECORDS SUMMARY | 2024-11-18 21:55 | XMS_ITS | Encounter Summary ---
Author Organization [employer] Address [address] [facility] 7t [place] [address] Care Team Providers Care Document Control Specialist Name Role Phone Sherley Ramirez MD Primary Care Provider [phone] Reason for Visit * Reason Comments Med Refill Encounter Details Date Type Department Care Team ([facility] Contact Info) Description 06/01/2022 Refill [facility] MEDICINE [address] [place], [place] [phone] Milagros Morris ANP [address] [place], [place] [phone] Pain Social History Tobacco Use Types Packs/Day [...] Description 01/12/2025 12:45 PM EST Office Visit [facility] ADULT DENTAL [address] [place] [address] Destinee Alaniz documented as of this encounter Visit Diagnoses Diagnosis Pain Generalized pain documented in this encounter Care Teams Document Control Specialist Relationship Specialty Start Date End Date Sherley Ramirze MD [address] [place] [address] PCP - General Family Medicine 09/09/20 documented as of this encounter
--- OUTSIDE RECORDS SUMMARY | 2024-11-18 21:55 | XMS_ITS | Encounter Summary ---
Author Organization [employer] Address [address] [facility] [address] [place] [address] Care Team Providers Care Stone Operator Name Role Phone Sherley Ramirez MD Primary Care Provider [phone] Reason for Visit * Reason Onset Date Comments Medication Question 11/30/2023 Encounter Details Date Type Department Care Team ([facility] Contact Info) Description 11/30/2023 Telephone [facility] [address] [place], [place] [phone] Sherley Ramirez MD [address] [place], [place] [phone] Medication Question Social History Tobacco Use Types [...] Description 01/12/2025 12:45 PM EST Office Visit [facility] [address] [place] [address] Destinee Alaniz documented as of this encounter Visit Diagnoses Not on filedocumented in this encounter Additional Health Concerns Assessment Noted Time PHQ-9 Depression Total Score: 22 024 7:08 AM EDT documented as of this encounter Care Teams Stone Operator Relationship Specialty Start Date End Date Sherley Ramirez MD [address] [place] [address] PCP - General Family Medicine 09/09/20 documented as of this encounter
--- OUTSIDE RECORDS SUMMARY | 2024-11-18 21:55 | XMS_ITS | Encounter Summary ---
Author Organization [employer] Address [address] [facility] [address] [place] [address] Care Team Providers Care Senior Customer Service Representative Name Role Phone Sherley Ramirez MD Primary Care Provider [phone] Encounter Details Date Type Department Care Team (Latest Contact Info) Description 01/20/2019 Abstract [facility] CONVERSIONS Dental, Provider, DDS Social History Tobacco [...] Care Team ( st Contact Info) Description 01/12/2025 12:45 PM EST Office Visit [facility] ADULT DENTAL [address] [place] [address] Destinee Alaniz documented as of this encounter Visit Diagnoses Not on filedocumented in this encounter Care Teams Senior Customer Service Representative Relationship Specialty Start Date End Date Sherley Ramirez MD [address] [place], [place] [phone] PCP - General Family Medicine 09/09/20 documented as of this encounter
--- OUTSIDE RECORDS SUMMARY | 2024-11-18 21:55 | XMS_ITS | Encounter Summary ---
Author Organization [employer] Address [address] [facility] [address] [place] [address] Care Team Providers Care Commissioning Specialist Name Role Phone Sherley Ramirez MD Primary Care Provider Reason for Visit * Reason Comments Med Refill Encounter Details Date Type Department Care Team (Late Contact Info) Description 04/11/2022 Refill [facility] MED[facility]INE [address] [place], [place] [phone] Sherley Ramirez MD [address] [place] [address] Pain Social History Tobacco Use Types Packs/Day [...] Description 01/12/2025 12:45 PM EST Office Visit [facility] ADULT DENTAL [address] [place], [place] [phone] Destinee Alaniz documented as of this encounter Visit Diagnoses Diagnosis Pain Generalized pain documented in this encounter Care Teams Commissioning Specialist Relationship Specialty Start Date End Date Sherley Ramirez MD [address] [place], [place] [phone] PCP - General Family Medicine 09/09/20 documented as of this encounter
--- OUTSIDE RECORDS SUMMARY | 2024-11-18 21:55 | XMS_ITS | Encounter Summary ---
Author Organization [employer] Address [address] [facility] [address] [place] [address] Care Team Providers Care Mobile Homes Repairer Name Role Phone Sherley Ramirez MD Primary Care Provider [phone] Reason for Visit * Reason Comments Med Refill Encounter Details Date Type Department Care Team ([facility] Contact Info) Description 06/19/2024 Refill [facility] MED[facility] [address] [place], [place] [phone] Nisreen Adamson CNM [address] [place] [address] Social History Tobacco Use Types Packs/Day Years [...] Description 01/12/2025 12:45 PM EST Office Visit [facility] ADULT DENTAL [address] [place] [address] Destinee Alaniz documented as of this encounter Visit Diagnoses Not on filedocumented in this encounter Additional Health Concerns Assessment Noted Time PHQ-9 Depression Total Score: 6 03/25/19 25 11:05 AM EST documented as of this encounter Care Teams Mobile Homes Repairer Relationship Specialty Start Date End Date Sherley Ramirez MD [address] [place] [address] PCP - General Family Medicine 09/09/20 documented as of this encounter
--- OUTSIDE RECORDS SUMMARY | 2024-11-18 21:55 | XMS_ITS | Encounter Summary ---
Author Organization [employer] Address [address] [facility] [address] [place] [address] Care Team Providers Care Management Coordinator Name Role Phone Sherley Ramirez MD Primary Care Provider [phone] Encounter Details Date Type Department Care Team ([facility] st Contact Info) Description 11/17/2024 Orders Only [facility] MEDICINE [address] [place], [place] [phone] Sherley Ramirez MD [address] [place], [place] [phone] Social History Tobacco Use Types Packs/Day Years [...] 12:45 PM EST Office Visit [facility] ADULT DENTAL [address] [place] [address] Destinee Alaniz documented as of this encounter Visit Diagnoses Not on filedocumented in this encounter Additional Health Concerns Assessment Noted Time PHQ-9 Depression Total Score: 6 03/25/19 25 11:05 AM EST documented as of this encounter Care Teams Management Coordinator Relationship Specialty Start Date End Date Sherley Ramirez MD [address] [place] [address] PCP - General Family Medicine 09/09/20 documented as of this encounter
--- NOTE | 2024-11-18 22:19 | ECG_ITS ---
Test Reason : CP Blood Pressure : */* mmHG Vent. Rate : 105 BPM Atrial Rate : 105 BPM P-R Int : 168 ms QRS Dur : 74 ms QT Int : 326 ms P-R-T Axes : 49 33 30 degrees QTcB Int : 430 ms Sinus tachycardia Otherwise normal ECG When compared with ECG of 27-Aug-2018 14:26, Nonspecific T wave abnormality now evident in Anterior leads Referred By: Afia Bailey Electronically Signed By: Rufus Motta
--- NOTE | 2024-11-18 22:28 | ED_ITS ---
HPI - General Adult General Chief complaint: ETOH/Substance Use Stated complaint: OD MJ edibles on empty stomach family concerned Time Seen by Provider: 11/18/24 21:23 History of Present Illness HPI narrative: Patient is a 24-year-old female presents today after potentially taking 2 edibles. They were possibly 5 mg edibles. EMS said patient took 2 edible. Patient stated she took up to 5 edibles. Nevertheless patient is somewhat lethargic. More difficult to arouse. Sent in for further evaluation. Mother states that patient has never like this. This is very different than her baseline. Was very concerned. There is no fever no chills. She had a history of a heart murmur. But never had any specific cardiac diagnosis. She is 24 years old. Unknown as to her status. Patient is from home. Related Data Allergies Allergy/AdvReac Type Severity Reaction Status Date / Time SEASONAL ALLERGIES Allergy Mild RUNNY NOSE Uncoded 11/18/24 20:51 acne med Allergy Unknown breakout Uncoded 11/18/24 20:51 Seasonal allergies Allergy Unknown Sneezing Uncoded 11/18/24 20:51 Review of Systems 2 Review of Systems: Positive altered mental status unable to provide detailed review of systems [facility] Social History Social History Advance Directives: No Advance Directives Information Provided: No Physical Exam ED Exam Exam: Appearance: Very lethargic. Moving all extremity. Eyes: Pupils equal, round and reactive to light. ENT: Pharynx normal. Neck: Normal inspection. Neck supple. No lymph nodes noted. No crepitus CVS: Normal heart rate and rhythm. Pulses normal. Normal S1 and S2 Respiratory: No respiratory distress. Breath sounds normal. No Wheezing. No rales Abdomen: Soft and nontender. No rigidity. No distention. good BS x4 Skin: Skin warm and dry. Normal skin color. Normal skin turgor. Extremities: No lower extremity edema. Neurovascular intact to all extremities. No Lacerations. No Rash Neuro: No motor deficit. No sensory deficit. Moving all extermities. No slurred .speech Vital Signs: Vital Signs - 24 hr 11/18/24 20:51 Temperature 98.5 F Pulse Rate 117 H Respiratory Rate 20 Blood Pressure 131/67 Pulse Oximetry 98 Oxygen Delivery Method Room Air BMI result Body Mass Index 53.5 Medications Administered Discontinued Medications Generic Name Dose Route Start Last Admin Trade Name Connor PRN Reason Stop Dose Admin Sodium Chloride 1,000 mls @ 999 mls/hr 11/18/24 22:30 11/18/24 23:16 Ns IV 11/18/24 23:30 999 mls/hr .Q1H1M WAYNE Administration Medical Decision Making Medical Decision Making [facility] Narrative: Patient's CT scan of the head was grossly negative. My interpretation showed no evidence of bleeding no evidence of mass. Patient is VBG was normal. test is negative alcohol is negative LFTs normal. White count is 14 hemoglobin is 12.5 approximately baseline. Patient is electrolytes showed baseline LFTs. Her cardiac enzymes are negative. My interpretation of her EKG showed a sinus rhythm heart rate is 100 [place] QRS QTC normal there is no acute ST segment elevation. Patient given IV fluids monitored in the emergency department. Sugar was normal there is no hypoglycemia. Will discharge patient home as now she is more awake alert. She complains of hunger. Was able to speak in single words. Will discharge patient home to the care of family. In stable condition. Family stated patient use 5 marijuana gummy today potentially the cause of patient's change in mental status. Differential Diagnosis Differential Diagnoses: The differential diagnosis associated with the presentation includes Hypoglycemia, intracranial bleed, electrolyte disturbance, dehydration, marijuana use Admission/Observation Consideration of admission/observation: Escalation of care including admission/observation considered Lab Data [facility] Lab Attestation statement: I reviewed the patient's lab results. 11/18/24 23:01 11/18/24 23:01 Labs: Lab Results 11/18/24 11/18/24 Range/Units 22:54 23:01 WBC 13.9 H (4.8-10.8) X10*3/uL RBC 5.24 (4.20-5.50) X10*6/uL Hgb 12.5 (12.0-16.0) g/dl Hct 39.8 (37.0-47.0) % MCV 76.0 L (80.0-98.0) fL MCH 23.9 L (27.0-33.0) pg MCHC 31.4 (31.0-35.0) g/dl RDW 18.0 H (11.0-16.0) % Plt Count 439 H (160-400) X10*3/uL MPV 10.0 (9.4-12.3) fL Immature Gran % (Auto) 0.5 H (0.0-0.4) % Neut % (Auto) 76.1 H (45-73) % Lymph % (Auto) 17.2 L (20-40) % [place] % (Auto) 5.5 (2-11) % Eos % (Auto) 0.4 (0-4) % Baso % (Auto) 0.3 (0-2) % Lymph # (Auto) 2.4 (1.2-4.9) X10*3/uL [place]ford # (Auto) 0.8 (0.1-1.2) X10*3/uL Eos # (Auto) 0.1 (0.0-0.4) X10*3/uL Baso # (Auto) 0.0 (0.0-0.2) X10*3/uL Abs Immat Gran (auto) 0.07 H (0.00-0.03) X10*3/uL Absolute Neuts (auto) 10.6 H (2.0-8.3) x10*3/uL Absolute Nucleated RBC 0.000 (0.0-0.012) X10*3/uL Nucleated RBC % (auto) 0.0 (0.0-0.2) /100WBC VBG pH 7.40 (7.32-7.43) VBG pCO2 28 mmHg VBG pO2 55 mmHg VBG HCO3 17 L (22-26) mmol/L VBG O2 Saturation 79.0 % VBG Base Excess -5.4 mmol/L Sodium 137 (135-145) mmol/L Potassium 4.5 D (3.3-5.1) mmol/L Chloride 109 H (96-108) mmol/L Carbon Dioxide 20 L (22-29) mmol/L Anion Gap 13 (12-20) BUN 15 (9-16) mg/dL Creatinine 0.87 (0.5-1.4) mg/dL Estim Creat Clear Calc 154.4 Estimated GFR > 60 Random Glucose 119 H (60-115) mg/dL Calcium 9.7 (8.4-10.2) mg/dL Total Bilirubin 0.1 (0.0-1.0) mg/dL Direct Bilirubin < 0.2 (0.0-0.5) mg/dL AST 41 H (5-31) U/L ALT 34 H (0-31) U/L Alkaline Phosphatase 135 H (39-117) U/L Ammonia 31 (13-55) umol/L Troponin I High Sens < 2.7 (<3.5-17.0) ng/L Total Protein 8.8 H (6.5-8.0) g/dL Albumin 4.3 (3.5-5.0) g/dL Lipase 49 (8-78) U/L Beta HCG, Quant < 2 mIU/mL Salicylates < 5.0 L (15-30) mg/dL Acetaminophen 7 (<30) mcg/mL Ethyl Alcohol < 10 mg/dL Independent Interpretation I performed an independent interpretation of an: CT Scan (CT head negative) Radiology Impression Discussion of test interpretation with radiology: I have reviewed the radiologist's reading. Social Determinants Patient?s care significantly limited by Social Determinants of Health including: Alcoholism and drug addiction in family and Problems related to primary support group Discharge Plan Discharge Clinical Impression: Marijuana use Patient Disposition: Home, Self-Care Instructions: Cannabis Use Disorder (ED) Referrals: Sherley Ramirez MD [Primary Care Provider, Internal Medicine] - 11/21/24 Print Language: Azeri
[2024-11-18 22:58] LABS: VBG HCO3 17 mmol/L (22-26); VBG O2 % Saturation 79.0 %
[2024-11-18 23:02] LABS: Venous Blood Gas Refer to POC result
[2024-11-18 23:08] LABS: MANUAL DIFF FLAG NO
[2024-11-18 23:09] LABS: Hematocrit 39.8 % (37.0-47.0); Hemoglobin 12.5 g/dl (12.0-16.0); Imm Gran Abs Auto 0.07 X10*3/uL (0.00-0.03); Imm Gran Pct Auto 0.5 % (0.0-0.4); Lymphocytes Absolute Auto 2.4 X10*3/uL (1.2-4.9); Mean Corpuscular HGB Conc 31.4 g/dl (31.0-35.0); Mean Corpuscular Hemoglobin 23.9 pg (27.0-33.0); Mean Corpuscular Volume 76.0 fL (80.0-98.0); NRBC Abs Auto 0.000 X10*3/uL (0.0-0.012); NRBC Pct Auto 0.0 /100WBC (0.0-0.2); Platelet Count 439 X10*3/uL (160-400); Red Blood Count 5.24 X10*6/uL (4.20-5.50); White Blood Count 13.9 X10*3/uL (4.8-10.8)
[2024-11-18 23:17] LABS: Ammonia 31 umol/L (13-55)
[2024-11-18 23:45] LABS: Acetaminophen LAB 7 mcg/mL (<30); Alanine Aminotransferase 34 U/L (0-31); Albumin Level 4.3 g/dL (3.5-5.0); Alkaline Phosphatase 135 U/L (39-117); Anion Gap 13 (12-20); Aspartate Amino Transferase 41 U/L (5-31); Blood Urea Nitrogen 15 mg/dL (9-16); Calcium 9.7 mg/dL (8.4-10.2); Carbon Dioxide 20 mmol/L (22-29); Chloride 109 mmol/L (96-108); Creatinine Clr Calc Pharmacy 154.4; Estimated Glomerular Filt Rate > 60; Lipase 49 U/L (8-78); Potassium 4.5 mmol/L (3.3-5.1); Salicylate < 5.0 mg/dL (15-30); Sodium 137 mmol/L (135-145); Total Protein 8.8 g/dL (6.5-8.0); Troponin-I High Sensitivity < 2.7 ng/L (<3.5-17.0)
[2024-11-19 01:04] VITALS: BP 108/61; PULSE 98; RESP 20; TEMP 37.1; O2SAT 97
[2024-11-19 01:59] VITALS: BP 108/61; PULSE 98; RESP 20; TEMP 37.1; O2SAT 97
== END 2024-11-19 02:03 | disposition home or self-care (01) ==
PROVIDERS: Emergency Provider Emergency Medicine Emergency Medical Services; PCP Family Medicine
DX: F12.988 Cannabis use, unspecified with other cannabis-induced disorder (principal); R53.83 Other fatigue; R07.89 Other chest pain; R00.0 Tachycardia, unspecified; R10.22 Pelvic and perineal pain left side; R41.82 Altered mental status, unspecified; Z51.81 Encounter for therapeutic drug level monitoring
CPT/HCPCS: 36415; 70450; 80048; 80076; 80143; 80179; 80307; 82140; 82803; 83690; 84484; 84702; 85025; 93005; 99284

== ENCOUNTER → 2024-11-18 22:19 | Outpatient (BNV) | payer MEDICARE, MEDICAID, SELFPAY | PROVIDERS: Emergency Provider Emergency Medicine Emergency Medical Services; PCP Family Medicine; Visit Provider Internal Medicine Cardiovascular Disease | DX: R00.0 Tachycardia, unspecified (principal) | CPT/HCPCS: 93010 ==

== ENCOUNTER → 2024-11-18 22:26 | Outpatient (BNV) | payer MEDICARE, MEDICAID, SELFPAY | PROVIDERS: Emergency Provider Emergency Medicine Emergency Medical Services; PCP Family Medicine; Visit Provider Radiology Diagnostic Radiology | DX: R41.82 Altered mental status, unspecified (principal) | CPT/HCPCS: 70450 ==